=== PATIENT | male | born 1940 | race Caucasian/White ===

== ENCOUNTER 2023-08-18 04:23 | Emergency (ER) | payer MEDICARE, SELFPAY ==
[2023-08-18 04:24] VITALS: BP 158/95
--- NOTE | 2023-08-18 04:58 | ED.GENMED ---
History of Present Illness
<FEDE Alba - Last Filed: 08/18/23 05:17>
General
Chief Complaint: Dizziness
Source: patient
Exam Limitations: none
Time Seen by Provider: 08/18/23 04:25
Travel History
Have you had any contact with someone who has COVID-19?: No
Do you have any symptoms of coronavirus? Fever > 100 degrees, chills, cough, shortness of breath, sore throat, loss of taste or smell, muscle aches, or headache?: No
History of Present Illness
History of Present Illness:
82 y/o M with history of empysema presents for dizziness and SOB starting a few hours ago. Patient reports he woke up because he was unable to breath. He reports this episode lasted 40 minutes until the EMS came. Patient states when he sat up on the
side of his bed and had a sensation of the room spinning. He reports he was afraid to stand up because he was feeling weak and shaky. He is reporting his vision has been worsening for the past few months. He reports associated watery eyes with the
vision change. Patient does have productive cough but reports history of emphysema. He denies any past similar symptoms. He reports he has had anxiety for years but has never formally gotten help for his anxiety. He denies chest pain, palpitations,
dizziness, headache or LOC.
If applicable-neuro sx onset
Onset of symptoms known: Yes
<Randal Hamm DO - Last Filed: 08/18/23 06:41>
If applicable-neuro sx onset
Date of onset of symptoms: 08/18/23
Past History
<FEDE Alba - Last Filed: 08/18/23 05:17>
Past History
ED Past Medical History: COPD
Review of Systems
<FEDE Alba - Last Filed: 08/18/23 05:17>
Review of Systems
Allergies reviewed?: Yes
All Other Systems: ROS reviewed and negative except as documented in HPI and ROS
Constitutional: Reports no symptoms
EENT: Reports no symptoms
Respiratory: Reports cough and trouble breathing
Cardiac: Reports syncope
ABD/GI: Reports no symptoms
: Reports no symptoms
Musculoskeletal: Reports no symptoms
Skin: Reports no symptoms
Neurological: Reports no symptoms
Endocrine: Reports no symptoms
Hematologic/Lymphatic: Reports no symptoms
Psychiatric: Reports no symptoms
Phy Exam
<FEDE Alba - Last Filed: 08/18/23 05:17>
General Physical Exam
General Presentation: well appearing and no apparent distress
General age: appears stated age
General Skin: warm
General Habitus: normal
General Mental: alert
General Hydration: appears well hydrated
ENT Exam
ENT Exam: EOMI and neck supple
Eye Exam
Eye Exam: PERRL, EOMI and conjunctiva normal
Cardiovascular Exam
Cardiovascular Exam: regular rate/rhythm, no edema and no murmur
Pulmonary Exam
Pulmonary Exam: generalized wheezing
Cough: productive cough
Skin Exam
Skin Exam: normal color, warm/dry and no rash
Course
<FEDE Alba - Last Filed: 08/18/23 05:17>
Orders/Labs/Results
Orders:
Orders
08/18/23 04:41
Electrocardiogram (*1) Urgent
Reason for Study: Vertigo / Dizzy
Cardiology Consult: Unknown
08/18/23 04:42
EKG- Treatment ONCE
08/18/23 04:54
Complete Blood Count/With Diff Urgent
Comprehensive Metabolic Panel Urgent
Urine Culture Reflexed from UA [Urinalysis Reflex To Culture] Urgent
Date Specimen was Collected: 08/18/23
Time Specimen was Collected: 04:42
08/18/23 05:06
Orthostatic VS- Treatment ONCE
Abnormal Lab Results
08/18/23
04:54
RBC 4.62 L 10^6/uL
(4.70-6.10)
MCH 31.8 H pg
(27.0-31.0)
Abs Immat Gran (auto) 0.1 H 10^3/uL
(0-0.05)
Immature Gran % 0.8 H %
(0-0.5)
Carbon Dioxide 31 H mmol/L
(22-30)
Glucose 106 H mg/dl
(70-99)
08/18/23 04:54
08/18/23 04:54
Vital Signs
Initial and Last Documented VS:
Initial Vital Signs
Temp Pulse Resp BP Pulse Ox
98.7 F 84 20 158/95 95
08/18/23 04:24 08/18/23 04:24 08/18/23 04:24 08/18/23 04:24 08/18/23 04:24
Last Documented Vital Signs
Temp Pulse Resp BP Pulse Ox
98.7 F 84 20 158/95 96
08/18/23 04:24 08/18/23 04:24 08/18/23 04:24 08/18/23 04:24 08/18/23 05:01
<Randal Hamm, DO - Last Filed: 08/18/23 06:41>
Orders/Labs/Results
Orders:
Orders
08/18/23 04:41
Electrocardiogram (*1) Urgent
Reason for Study: Vertigo / Dizzy
Cardiology Consult: Unknown
08/18/23 04:42
EKG- Treatment ONCE
08/18/23 04:54
Complete Blood Count/With Diff Urgent
Comprehensive Metabolic Panel Urgent
Urine Culture Reflexed from UA [Urinalysis Reflex To Culture] Urgent
Date Specimen was Collected: 08/18/23
Time Specimen was Collected: 04:42
08/18/23 05:06
Orthostatic VS- Treatment ONCE
Abnormal Lab Results
08/18/23
04:54
RBC 4.62 L 10^6/uL
(4.70-6.10)
MCH 31.8 H pg
(27.0-31.0)
Abs Immat Gran (auto) 0.1 H 10^3/uL
(0-0.05)
Immature Gran % 0.8 H %
(0-0.5)
Carbon Dioxide 31 H mmol/L
(22-30)
Glucose 106 H mg/dl
(70-99)
08/18/23 04:54
08/18/23 04:54
Vital Signs
Initial and Last Documented VS:
Initial Vital Signs
Temp Pulse Resp BP Pulse Ox
98.7 F 84 20 158/95 95
08/18/23 04:24 08/18/23 04:24 08/18/23 04:24 08/18/23 04:24 08/18/23 04:24
Last Documented Vital Signs
Temp Pulse Resp BP Pulse Ox
98.7 F 84 20 158/95 96
08/18/23 04:24 08/18/23 04:24 08/18/23 04:24 08/18/23 04:24 08/18/23 05:01
<Randal Hamm DO - Last Filed: 08/18/23 06:41>
*Pulse Oximetry
Patient hypoxic: no
*Critical Care Note
Total Time (30-74mins, 75-104mins- exclusive of procedures): Not Applicable
ED Attending Note
<FEDE Alba - Last Filed: 08/18/23 05:17>
-
Portions of this chart may have been created with voice recognition software.� Occasional wrong word or��sound alike� substitutions may have occurred due to the inherent limitations of voice recognition software.
<Randal Hamm, DO - Last Filed: 08/18/23 06:41>
ED Attending Note
Patient seen and examined by attending physician: Yes
I performed the substantive portion of visit, reviewed & personally made and approve the management plan that is documented in note by myself or BERNIE.: Yes
ED Attending Note:
This is a pleasant 82-year-old male presents with dizziness and shortness of breath. He resides at [facility] and states that he awakened feeling shortness of breath. He states that it was maximal in onset and gradually resolved. He returned to
normal approximately 40 minutes after it began. Patient states that he was sitting on the bed when the room was spinning around him. During this event, he was afraid to ambulate or stand because she felt increased weakness. Patient has had a
similar event in the past. There is prior to him having a diagnosis of anxiety. Patient denies fever, chills, nausea or vomiting. Patient states that he has had anxiety for many years but states he has not gotten a resources for this. Patient
was seen in conjunction with the PA student. I have reviewed and agree with the history and treatment plan presented. On my independent physical exam, patient is awake, alert, and oriented x3 somnolent appearing. Heart is regular rate and rhythm.
Lungs are clear to auscultation bilaterally.CT abdomen and pelvis without intravenous contrast. Orthostatics were within normal limits. Patient has no complaints. Patient wishes to be discharged back to [facility]. Lab work were reviewed. I see
no reason the patient cannot be discharged. Patient states that he wishes to be discharged immediately.
Discharge Plan
Departure
Patient Disposition: [facility]/SNF
Date of Disposition: 08/18/23
Time of Disposition: 05:57
Discharge Problem:
Panic attack
Instructions: Anxiety, Adult (DC), BLOOD PRESSURE
Prescriptions:
No Action
therapeutic multivitamin Tablet
1 tab PO DAILY
mirtazapine 15 mg tablet
15 mg PO HS
vitamin B complex Capsule
1 cap PO DAILY
pantoprazole 40 mg Tablet,Delayed Release (Dr/Ec)
40 mg PO DAILY Qty: 30 0RF
Slow Fe 142 mg (45 mg iron) tablet extended release
142 mg PO BID Qty: 30 0RF
Rx Instructions:
with food
Acidophilus
1 tab PO DAILY
Colace
100 mg PO DAILY PRN (Reason: constipation)
Miralax
17 g PO DAILY
Referrals:
Derek Kendrick MD [Family Provider] -
Activity Restrictions/Additional Instructions:
It was a pleasure meeting you and taking part in your care. We hope for your continued healing and wellness.
Please read discharge instructions in their entirety. However, they are for general education and may not describe your exact diagnosis at discharge. Information on your ER visit and medical conditions were discussed with you along with appropriate
follow up information...
If indicated, please take your medications as instructed and indicated on discharge paperwork.
Please schedule a follow up appointment as directed. Call to schedule an appointment
Please return to the emergency department with ANY change in, persisting, or worsening of symptoms. If any of your symptoms do not improve, or persist, or become more severe within 6-12 hours, please return to the emergency department for further
care.
Please return to the emergency department if you develop a headache, neck pain/stiffness, fever greater than 100.4F, chest pain, shortness of breath, persistent nausea, vomiting, slurred speech, difficulty walking, numbness/tingling, weakness, signs
of infection or any other symptoms that are worrisome to you.
If you have any questions or concerns please do not hesitate to call the Hospital at or E-mail me directly at [email or web address]
Interventions
Interventions:
*Risk Screen - Suicide Last Done: 08/18/23 04:24
*Neglect/Abuse Screening Last Done: 08/18/23 05:01
ED- Fall Risk Assessment Last Done: 08/18/23 04:24
*ED COVID-19 Vaccine History Last Done: 08/18/23 04:24
ED-Psychological Assessment Last Done: 08/18/23 05:01
ED- Neurological Assessment Last Done: 08/18/23 05:01
ED- Cardiac Assessment Last Done: 08/18/23 05:01
[2023-08-18 05:01] VITALS: BMI 32.2
[2023-08-18 05:02] LABS: % Basophils 1.1 % (0-2); % Eosinophils 2.9 % (0-6); % Immature Granulocytes 0.8 % (0-0.5); % Lymphocytes 30.9 % (20.5-51.1); % Monocytes 9.1 % (1.7-9.3); % Neutrophils 55.2 % (42.2-75.2); Absolute Basophils 0.1 10^3/uL (0-0.2); Absolute Eosinophils 0.2 10^3/uL (0-0.7); Absolute Immature Granulocytes 0.1 10^3/uL (0-0.05); Absolute Monocytes 0.6 10^3/uL (0.1-0.6); Absolute Neutrophils 3.6 10^3/uL (1.4-6.5); Hematocrit 42.3 % (39.0-52.0); Hemoglobin 14.7 g/dL (13.0-18.0); Mean Corp Hgb Conc. 34.8 g/dL (33.0-37.0); Mean Corpuscular Hgb 31.8 pg (27.0-31.0); Mean Corpuscular Volume 91.6 fL (80.0-94.0); Mean Platelet Volume 8.6 fL (7.4-10.4); Nucleated Red Blood Cells % 0 % (-); Platelet Count 251 10^3/uL (130-400); Red Blood Cell Count 4.62 10^6/uL (4.70-6.10); Red Cell Dist. Width 13.2 % (11.5-14.5); White Blood Cell Count 6.5 10^3/uL (4.8-10.8)
[2023-08-18 05:29] LABS: Urine Albumin Negative (Neg - Trace); Urine Bilirubin Negative (Negative); Urine Character Clear (Clear); Urine Color Yellow; Urine Glucose Negative (Negative); Urine Ketone Negative (Negative); Urine Leukocyte Negative (Negative); Urine Nitrite Negative (Negative); Urine Occult Blood Negative (Negative); Urine Urobilinogen Negative (Neg - 1+)
[2023-08-18 05:30] LABS: ALT (SGPT) 29 U/L (0-50); AST (SGOT) 33 U/L (17-59); Alkaline Phosphatase 87 U/L (38-126); Blood Urea Nitrogen 18 mg/dl (9-20); Carbon Dioxide 31 mmol/L (22-30); Chloride 99 mmol/L (98-107); Estimated Creatinine Clearance 71 ml/min; Glucose 106 mg/dl (70-99); Potassium 4.2 mmol/L (3.5-5.1); Sodium 140 mmol/L (135-145); Total Bilirubin 0.7 mg/dl (0.2-1.3); Total Protein 6.5 g/dl (6.3-8.2); eGFR > 60.00
[2023-08-18 05:50] VITALS: BP 125/84; BP 139/82; BP 143/83; PULSE 77; PULSE 81; PULSE 85
== END 2023-08-18 06:50 ==
LOC: EMR 04:23
PROVIDERS: EMERGENCY PHYSICIAN Student in an Organized Health Care Education/Training Program; FAMILY PHYSICIAN Internal Medicine Geriatric Medicine
DX: F41.0 Panic disorder [episodic paroxysmal anxiety] (principal); J43.9 Emphysema, unspecified
CPT/HCPCS: 99284; 80053; 81003; 85025; 93005

== ENCOUNTER → 2023-11-16 11:15 | Outpatient (REF) | payer MEDICARE, SELFPAY ==
[2023-11-16 13:51] LABS: % Basophils 0.9 % (0-2); % Eosinophils 2.4 % (0-6); % Immature Granulocytes 0.6 % (0-0.5); % Lymphocytes 26.4 % (20.5-51.1); % Monocytes 10.4 % (1.7-9.3); % Neutrophils 59.3 % (42.2-75.2); Absolute Basophils 0.1 10^3/uL (0-0.2); Absolute Eosinophils 0.2 10^3/uL (0-0.7); Absolute Immature Granulocytes 0.1 10^3/uL (0-0.05); Absolute Lymphocytes 2.6 10^3/uL (1.2-3.4); Absolute Neutrophils 5.8 10^3/uL (1.4-6.5); Hematocrit 45.1 % (39.0-52.0); Mean Corp Hgb Conc. 33.3 g/dL (33.0-37.0); Mean Corpuscular Hgb 30.2 pg (27.0-31.0); Mean Corpuscular Volume 90.9 fL (80.0-94.0); Mean Platelet Volume 9.2 fL (7.4-10.4); Nucleated Red Blood Cells % 0 % (-); Platelet Count 264 10^3/uL (130-400); Red Blood Cell Count 4.96 10^6/uL (4.70-6.10); Red Cell Dist. Width 13.1 % (11.5-14.5); White Blood Cell Count 9.7 10^3/uL (4.8-10.8)
[2023-11-16 13:52] LABS: Urine Albumin Negative (Neg - Trace); Urine Bilirubin Negative (Negative); Urine Character Clear (Clear); Urine Color Yellow; Urine Glucose Negative (Negative); Urine Ketone Negative (Negative); Urine Leukocyte Negative (Negative); Urine Nitrite Negative (Negative); Urine Occult Blood Negative (Negative); Urine Specific Gravity 1.015 (<1.030); Urine Urobilinogen Negative (Neg - 1+)
[2023-11-16 14:06] LABS: ALT (SGPT) 27 U/L (0-50); AST (SGOT) 34 U/L (17-59); Albumin 4.6 g/dl (3.5-5.0); Alkaline Phosphatase 94 U/L (38-126); Blood Urea Nitrogen 21 mg/dl (9-20); Carbon Dioxide 29 mmol/L (22-30); Chloride 103 mmol/L (98-107); Glucose 91 mg/dl (70-99); HDL Cholesterol 99 mg/dl; LDL Cholesterol, Calculated 106 mg/dl; Potassium 4.3 mmol/L (3.5-5.1); Sodium 138 mmol/L (135-145); Total Bilirubin 0.6 mg/dl (0.2-1.3); Total Cholesterol 221 mg/dl (50-199); Total Protein 7.3 g/dl (6.3-8.2); Triglyceride 82 mg/dl (10-149); Very Low Density Lipoprotein 16 mg/dl (0-30); eGFR > 60.00
[2023-11-16 14:23] LABS: Vitamin D, 25-OH*** 49.1 ng/mL (30-80)
== END ==
LOC: OLABPV 11:15
PROVIDERS: ATTENDING PHYSICIAN Internal Medicine Geriatric Medicine
DX: E78.2 Mixed hyperlipidemia (principal); R53.83 Other fatigue; G47.00 Insomnia, unspecified; G25.0 Essential tremor; G60.9 Hereditary and idiopathic neuropathy, unspecified; M76.30 Iliotibial band syndrome, unspecified leg; N50.3 Cyst of epididymis; N40.1 Benign prostatic hyperplasia with lower urinary tract symptoms; F32.9 Major depressive disorder, single episode, unspecified; K57.91 Diverticulosis of intestine, part unspecified, without perforation or abscess with bleeding; Z13.89 Encounter for screening for other disorder; D50.0 Iron deficiency anemia secondary to blood loss (chronic); R97.20 Elevated prostate specific antigen [PSA]; R63.4 Abnormal weight loss; R53.1 Weakness; R26.89 Other abnormalities of gait and mobility; E55.9 Vitamin D deficiency, unspecified
CPT/HCPCS: 36415; 80053; 80061; 81003; 82306; 84153; 85025

== ENCOUNTER 2024-03-10 12:43 | Outpatient (RCR) | payer MEDICARE, SELFPAY | END 2024-03-10 23:59 | disposition home or self-care (01) | LOC: RPT 12:43 | PROVIDERS: ATTENDING PHYSICIAN Internal Medicine Geriatric Medicine | DX: H81.12 Benign paroxysmal vertigo, left ear (principal); Z73.6 Limitation of activities due to disability | CPT/HCPCS: 97112; 97162; 97530 ==

== ENCOUNTER 2024-03-28 13:52 | Outpatient (RCR) | payer MEDICARE, SELFPAY | END 2024-03-28 23:59 | disposition home or self-care (01) | LOC: RPT 13:52 | PROVIDERS: ATTENDING PHYSICIAN Internal Medicine Geriatric Medicine | DX: H81.12 Benign paroxysmal vertigo, left ear (principal); Z73.6 Limitation of activities due to disability | CPT/HCPCS: 97112 ==

== ENCOUNTER 2024-09-03 13:50 | Observation (INO) | payer MEDICARE, SELFPAY ==
[2024-09-03 13:00] VITALS: BP 108/91
[2024-09-03 13:11] LABS: % Basophils 0.4 % (0-2); % Eosinophils 0.9 % (0-6); % Immature Granulocytes 0.9 % (0-0.5); % Lymphocytes 20.9 % (20.5-51.1); % Monocytes 8.5 % (1.7-9.3); % Neutrophils 68.4 % (42.2-75.2); Absolute Eosinophils 0.1 10^3/uL (0-0.7); Absolute Immature Granulocytes 0.1 10^3/uL (0-0.05); Absolute Lymphocytes 1.7 10^3/uL (1.2-3.4); Absolute Monocytes 0.7 10^3/uL (0.1-0.6); Absolute Neutrophils 5.6 10^3/uL (1.4-6.5); Hematocrit 40.2 % (39.0-52.0); Hemoglobin 13.4 g/dL (13.0-18.0); Mean Corp Hgb Conc. 33.3 g/dL (33.0-37.0); Mean Corpuscular Hgb 31.1 pg (27.0-31.0); Mean Corpuscular Volume 93.3 fL (80.0-94.0); Mean Platelet Volume 8.7 fL (7.4-10.4); Nucleated Red Blood Cells % 0 % (-); Platelet Count 200 10^3/uL (130-400); Red Blood Cell Count 4.31 10^6/uL (4.70-6.10); White Blood Cell Count 8.2 10^3/uL (4.8-10.8)
--- NOTE | 2024-09-03 13:13 | ED.GENMED ---
History of Present Illness
General
Chief Complaint: Rectal Bleeding
Source: patient
Exam Limitations: none
Time Seen by Provider: 09/03/24 12:57
History of Present Illness
History of Present Illness:
Patient with 3 episodes of bright red rectal bleeding today. Feels fine. First episode was with stool. No abdominal pain lightheadedness weakness or other complaints
Past History
Past History
ED Past Medical History: COPD
ED Past Surgical History: Appendectomy, Bowel resection and Cholecystectomy
Review of Systems
Review of Systems
All Other Systems: Not applicable
Constitutional: Denies fever or chills
ABD/GI: Denies abdominal pain or black stools
Phy Exam
Physical Exam
Physical Exam:
GENERAL: Alert and oriented in no apparent distress
EYE: Orbits normal.
NECK: Supple, no significant adenopathy.
ENT: Pharynx without erythema
CARDIAC: Regular rate and rhythm without any obvious murmurs.
LUNGS: Clear breath sounds,normal
ABDOMEN: Soft, without focal tenderness or distention
NEUROLOGICAL: Alert and oriented , grossly non-focal
SKIN: Warm and dry, no rash or lesion, no discoloration, skin intact.
MUSCULOSKELETAL: No edema,no deformity.Good color
PSYCH: Normal and appropriate interaction.. Rectal exam with a small external hemorrhoid nonbleeding. On fingertip exam large smooth prostate. Moderate bright red blood on the fingertip.
Course
Orders/Labs/Results
Orders:
Orders
09/03/24 12:48
EKG [Electrocardiogram (*1)] Urgent
Reason for Study: Chest Pain
09/03/24 12:49
EKG- Treatment ONCE
09/03/24 12:55
Type And Crossmatch [Type+Screen] Urgent
Complete Blood Count/With Diff Urgent
Comprehensive Metabolic Panel Urgent
09/03/24 13:36
Admit/Transfer Patient As Directed
Co-Sign Provider:
Level of Care: Observation services
Assign to:: Medical/Surgical
Physician / Group: marian
Diagnosis: diverticular bleeding
Code Status As Directed
Resuscitation Status: Do not resuscitate
Reached after discussion with pt or family/Healthcare POA: Yes
DNR Bracelet Application ONCE
PRN Pain Medication Management As Directed
May give lesser potent ordered pain med per pt: Yes
preference::
Protocol:: Medication orders for pain may be administered in a
manner that supports deferring to patient preference
when the pt is:
- Requesting an ordered lesser potent pain medication.
Least to most potent pain medications are defined
as: acetaminophen < NSAID < tramadol < opioids
(morphine, oxycodone, hydromorphone).
- Requesting a lesser dose of the same medication IF
ORDERED.
- Requesting a less intrusive route of administration
if both routes are prescribed by the provider (PO <
IV).
Abnormal Lab Results
09/03/24
12:55
RBC 4.31 L 10^6/uL
(4.70-6.10)
MCH 31.1 H pg
(27.0-31.0)
Abs Immat Gran (auto) 0.1 H 10^3/uL
(0-0.05)
Absolute Monos (auto) 0.7 H 10^3/uL
(0.1-0.6)
Immature Gran % 0.9 H %
(0-0.5)
BUN 23 H mg/dl
(9-20)
Total Protein 6.0 L g/dl
(6.3-8.2)
09/03/24 12:55
09/03/24 12:55
Vital Signs
Initial and Last Documented VS:
Initial Vital Signs
BP
108/91
09/03/24 13:00
Last Documented Vital Signs
Temp BP Pulse Ox
97.9 F 108/91 94
09/03/24 13:07 09/03/24 13:00 09/03/24 13:01
MDM/Problems Addressed
Differential Diagnosis Includes:
Stable lower GI bleed. However previous GI bleed had a significant drop in hemoglobin requiring transfusion. For this reason I feel he should be admitted for observation overnight
*Critical Care Note
Total Time (30-74mins, 75-104mins- exclusive of procedures): Not Applicable
Data Reviewed
Review of Other/Old Records Reveals: Labs, Records, Testing and Discharge Summary
ED Attending Note
-
Portions of this chart may have been created with voice recognition software.� Occasional wrong word or��sound alike� substitutions may have occurred due to the inherent limitations of voice recognition software.
Discharge Plan
Departure
Patient Disposition: Admit
Date of Disposition: 09/03/24
Time of Disposition: 13:19
Presentation/result/management discussed w/ accepting MD/DO: Hospitalist
Discharge Problem:
Acute GI bleeding
[2024-09-03 13:21] LABS: ALT (SGPT) 26 U/L (0-50); AST (SGOT) 27 U/L (17-59); Albumin 3.6 g/dl (3.5-5.0); Alkaline Phosphatase 85 U/L (38-126); Blood Urea Nitrogen 23 mg/dl (9-20); Calcium 9.2 mg/dl (8.4-10.2); Carbon Dioxide 30 mmol/L (22-30); Chloride 104 mmol/L (98-107); Glucose 97 mg/dl (70-99); Potassium 4.5 mmol/L (3.5-5.1); Sodium 139 mmol/L (135-145); Total Bilirubin 0.6 mg/dl (0.2-1.3); eGFR > 60.00
[2024-09-03 13:26] VITALS: BP 110/74
--- NOTE | 2024-09-03 13:38 | HPS.HSE ---
Family Physician
-
Family Physician: Derek Kendrick
Chief Complaint
-
rectal bleeding
History of Present Illness
83-year-old male past medical history of diverticulitis status post colon resection 14 years ago, diverticular bleeding, anxiety/depression presenting with 3 episodes of bright red rectal bleeding today. First episode was with stool. He had 2
further episodes that were mostly blood. The color was maroon-colored. Denies abdominal pain. Denies rectal pain. Denies nausea or vomiting. Denies dizziness or weakness. Denies chest pain or shortness of breath.
Medical History
Past Medical History
Past Medical History: Reports Other (diverticulitis status post colon resection 14 years ago, diverticular bleeding, anxiety/depression)
Past Surgical History: Reports Other (colon resection )
Social History
Tobacco: Non-smoker
Alcohol: None
Drug: None
Family History
Family History: Not pertinent
Allergies / Home Medications
Allergies reflects when Allergies were last updated in [employer].
Home Medications with original date entered in [employer]
Allergy/Medication List:
Allergies
Allergy/AdvReac Type Severity Reaction Status Date / Time
tamsulosin [From Flomax] Allergy Unknown Unknown Verified 09/03/24 13:06
zolpidem Allergy Unknown Verified 10/01/22 17:40
Home Medications
mirtazapine 15 mg tablet 15 mg PO HS Mental Health/Anxiety 10/01/22
therapeutic multivitamin 1 tab PO QPM Supplement 10/01/22
vitamin B complex 1 cap PO DAILY Supplement 10/01/22
Lactobac no.2-Bifidobac no.1-S. thermo 112.5 billion cell capsule (Visbiome) 1 cap PO DAILY 08/18/23
docusate sodium 100 mg capsule (Colace) 100 mg PO DAILYPRN PRN constipation 08/18/23
buspirone 5 mg tablet 5 mg PO DAILY 09/03/24
vitamins A,C,K-btdj-fwslrx 2,148 mcg-113 mg-45 mg-17.4 mg tablet (PreserVision AREDS) 1 tab PO DAILY 09/03/24
Review of Systems
-
History Source: Patient
A 12 point ROS was completed and negative except as noted: Yes
Constitutional: Reports No Symptoms
EENT: Reports No Symptoms
Respiratory: Reports No Symptoms
Cardiac: Reports No Symptoms
Abdomen/GI: Reports See HPI
: Reports No Symptoms
Musculoskeletal: Reports No Symptoms
Skin: Reports No Symptoms
Neurological: Reports No Symptoms
Endocrine: Reports No Symptoms
Hematologic/Lymphatic: Reports No Symptoms
Psych: Reports No Symptoms
Physical Exam
Vital Signs
Vital Signs
Temp BP Pulse Ox
97.9 F 108/91 94
09/03/24 13:07 09/03/24 13:00 09/03/24 13:01
Physical Exam
General: Well Developed, Well Nourished and No Apparent Distress
HEENT: NormoCephalic, Moist mucous membranes and Atraumatic
Respiratory: Clear
Cardiac: S1/S2 and Regular Rhythm; No Murmur or Rub
GI: Soft, Non Tender, Non Distended and Normal Bowel Sounds; No Organomegaly
Rectal: Deferred by Provider
Musculoskeletal: No Clubbing, No Cyanosis and No Edema
Skin: No Rash
Neuro: Nonfocal/grossly intact
Laboratory Results
-
09/03/24 12:55
09/03/24 12:55
Laboratory Results
Total Bilirubin 0.6 mg/dl (0.2-1.3) 09/03/24 12:55
AST 27 U/L (17-59) 09/03/24 12:55
ALT 26 U/L (0-50) 09/03/24 12:55
Alkaline Phosphatase 85 U/L (38-126) 02/23/25 12:55
Data Reviewed
-
Lab Data: Labs Reviewed by me
Old Records: Reviewed
Impression/Plan
-
IMPRESSION:
PLAN:
# Rectal bleeding likely diverticular
# History of rectal bleeding secondary to diverticulosis
-Rectal exam showed small external hemorrhoid nonbleeding
-Hemoglobin 13.4
-Observation overnight, GI consult if further bleeding or hemoglobin drop
-Clear liquid diet
-Hold docusate
History of diverticulitis status post colon resection 14 years ago
Anxiety/depression
-Continue buspirone, mirtazapine
History of impaired fasting glucose
DNR/DNI
DVT prophylaxis�SCDs
Clear liquid diet
[2024-09-03 14:00] VITALS: BP 113/73
[2024-09-03 16:00] VITALS: BP 110/77
[2024-09-03] MEDS: THERAGRAN 1 TABLET PO (17:18)
[2024-09-03] MEDS: REMERON 15 MG PO (22:49)
[2024-09-03 23:43] VITALS: BP 116/74
[2024-09-04 07:25] VITALS: BP 116/77
--- NOTE | 2024-09-04 07:44 | PTCARENOTE ---
Patient with 2 episodes of blood red blood with BM this AM. notified.
[2024-09-04 08:18] LABS: % Basophils 0.6 % (0-2); % Eosinophils 2.4 % (0-6); % Immature Granulocytes 0.6 % (0-0.5); % Lymphocytes 28.6 % (20.5-51.1); % Monocytes 9.3 % (1.7-9.3); % Neutrophils 58.5 % (42.2-75.2); Absolute Eosinophils 0.2 10^3/uL (0-0.7); Absolute Lymphocytes 1.8 10^3/uL (1.2-3.4); Absolute Monocytes 0.6 10^3/uL (0.1-0.6); Absolute Neutrophils 3.7 10^3/uL (1.4-6.5); Hematocrit 38.1 % (39.0-52.0); Hemoglobin 12.5 g/dL (13.0-18.0); Mean Corp Hgb Conc. 32.8 g/dL (33.0-37.0); Mean Corpuscular Hgb 30.6 pg (27.0-31.0); Mean Corpuscular Volume 93.2 fL (80.0-94.0); Mean Platelet Volume 9.1 fL (7.4-10.4); Nucleated Red Blood Cells % 0 % (-); Platelet Count 193 10^3/uL (130-400); Red Blood Cell Count 4.09 10^6/uL (4.70-6.10); White Blood Cell Count 6.3 10^3/uL (4.8-10.8)
[2024-09-04] MEDS: B COMPLEX w/VITAMIN C 1 CAPLET PO (08:44)
[2024-09-04] MEDS: VISBIOME 1 CAP PO (08:44)
[2024-09-04] MEDS: BUSPAR 5 MG PO (08:44)
[2024-09-04] MEDS: OCUVITE SOFTGEL 1 CAP PO (08:44)
[2024-09-04 08:45] LABS: ALT (SGPT) 24 U/L (0-50); AST (SGOT) 26 U/L (17-59); Albumin 3.2 g/dl (3.5-5.0); Alkaline Phosphatase 71 U/L (38-126); Blood Urea Nitrogen 17 mg/dl (9-20); Carbon Dioxide 29 mmol/L (22-30); Chloride 105 mmol/L (98-107); Glucose 100 mg/dl (70-99); Potassium 3.9 mmol/L (3.5-5.1); Sodium 137 mmol/L (135-145); Total Bilirubin 0.7 mg/dl (0.2-1.3); Total Protein 5.4 g/dl (6.3-8.2); eGFR > 60.00
--- NOTE | 2024-09-04 09:16 | CON.GI ---
Addendum entered and electronically signed by Crys Redman MD 09/04/24 13:03:
I saw and examined the patient.
The STRUCTURES TECHNICIAN's note was reviewed and I agree with the note.
Comment: Mr. Schwartz is a very pleasant 83-year-old male with past medical history as listed below including prior history of diverticulitis status post colon resection and also history of lower GI bleed presumed to be diverticular in 2022 and he
did have a colonoscopy during that admission and was noted to have colon polyps which were tubular adenomas and inflammatory polyp and diverticulosis and hemorrhoids were noted. Yesterday he had painless rectal bleeding a few episodes and presented
to the emergency room admission hemoglobin was 13.4 and dropped to 12.5 since admission. He has not had any further bleeding today. He denies any abdominal pain no nausea or vomiting no fevers or chills. He does suffer from chronic constipation
he has tried a couple of keee-dpz-szvjzve laxatives, says fiber bound him up he says MiraLAX does help but makes him go too much sometimes and so he takes it every 2 to 3 days and also tried Linzess a few years ago. He does use tap water enemas
every 2 to 3 days.
Assessment and plan lower GI bleed most likely related to hemorrhoids versus diverticulosis less likely ischemic colitis he had painless bleeding. He did have a similar episode in 2022 and colonoscopy at that time revealed diverticulosis,
hemorrhoids and polyps which were removed. He denies any aspirin or NSAID use prior to admission. Continue to monitor hemoglobin and if he does have further brisk bleeding would recommend CTA. I also recommended for him to take MiraLAX every day
or every other day for chronic constipation, he only takes it sometimes and when he does use it works for him but he says it gives him diarrhea so I told him to take half the dose every other day or daily, he says Linzess did not help him in the
past but is unsure of the dose he tried. Could try other prescription laxatives as outpatient. He also uses tapwater enemas about 2-3 times a week. he is going to follow-up also to discuss his chronic dysphagia symptoms as outpatient.
Original Note:
Consultation
-
Date/Time Consultation Requested: 09/04/24909
Date/Time Consultation Performed: 09/04/24914
Requesting Provider: Liu Kingsley MD
Performing Provider: KENISHA Gage, Crys Redman MD
Reason for Consultation: rectal bleeding
Medical History
Chief Complaint / HPI
Chief Complaint: rectal bleeding
History of Present Illness:
Pt is an 83yo with hx diverticulitis with prior colon resection, diverticular bleeding 2022, TA colon polyps, constipation, vertigo, basal cell CA,anxiety/depression, prior alverto, appe with onset of rectal bleeding. Bleeding started 09/03 and
persists til today with larger volume of red blood in toilet and darker stools. On admission hbg 13.4 with drop to 12.5 after admission. Pt admits to chronic constipation with use of stool softener, probiotic mother earth supplement and enemas to
assist with constipation. He has tried Miralax, milk of mag and Linzess many years ago. He also has chronic dysphagia with solids with no prior work up. He otherwise denies any issues with odynophagia, GERD, nausea, vomiting, abdominal pain,
or diarrhea. Per patient Last colonoscopy was 09/2022-Dr. Murtaza Lima-hemorrhoids, normal ileum, blood in entire colon, diverticulosis, 5 mm polyp AC, 9 mm polyp Descending colon, 9 mm polyp Descending colon, hemorrhoids bx TA and inflammatory polyp.
Past Medical History
Past Medical History: Cancer (basal cell skin CA), Psychiatric (anxiety/depression) and Other ( diverticulitis, prior diverticular bleeding, vertigo, insomnia, spinal stenosis, TA colon polyps, BPH, fatty liver per prior imaging )
Past Surgical History: Appendectomy, Bowel Resection (?Sigmoid resection for diverticular disease ), Cholecystectomy, Tonsilectomy and Other (cataracts)
Social History
Tobacco: Former Smoker
Alcohol: None
Drug: None
Living: Alone
Employment: Retired
Family History
Family History: Other (no family hx colon Ca or polyps)
Allergies / Home Medications
Allergy/AdvReac Type Severity Reaction Status Date / Time
tamsulosin [From Flomax] Allergy Unknown Unknown Verified 09/03/24 13:06
zolpidem Allergy Unknown Verified 10/01/22 17:40
�Medication �Instructions �Recorded
mirtazapine 15 mg tablet 15 mg PO HS Mental Health/Anxiety 10/01/22
therapeutic multivitamin 1 tab PO QPM Supplement 10/01/22
vitamin B complex 1 cap PO DAILY Supplement 10/01/22
Lactobac no.2-Bifidobac no.1-S. 1 cap PO DAILY 08/18/23
thermo 112.5 billion cell capsule
(Visbiome)
docusate sodium 100 mg capsule 100 mg PO DAILYPRN PRN constipation 08/18/23
(Colace)
buspirone 5 mg tablet 5 mg PO DAILY 09/03/24
vitamins A,C,D-kjic-mobgon 2,148 1 tab PO DAILY 09/03/24
mcg-113 mg-45 mg-17.4 mg tablet
(PreserVision AREDS)
Review of Systems
-
History Source: Patient
Constitutional: Reports Weight Loss ( 30 lb loss over 4 years since moving to [place] )
EENT: Reports No Symptoms
Respiratory: Reports No Symptoms
Cardiac: Reports No Symptoms
Abdomen/GI: Reports Constipated, Bloody Stools and Other (chronic dysphagia )
: Reports No Symptoms
Musculoskeletal: Reports No Symptoms
Skin: Reports No Symptoms
Neurological: Reports Other (balance issues )
Endocrine: Reports No Symptoms
Hematologic/Lymphatic: Reports Bleeding
Vital Signs
Temp Pulse Resp BP Pulse Ox
98.1 F 84 18 116/77 98
09/04/24 07:25 09/04/24 07:25 09/04/24 07:25 09/04/24 07:25 09/04/24 07:25
Physical Exam
Exam
General: Well Developed, Well Nourished and No Apparent Distress
HEENT: Normocephalic and Anicteric
Respiratory: Clear
Cardiac: Regular Rhythm
GI: Soft and Non Distended
Musculoskeletal: No Clubbing and No Cyanosis
Skin: Warm and Dry
Neuro: Awake, Alert and AO x 3
Psych: Calm
Results
WBC 6.3 10^3/uL (4.8-10.8) 09/04/24 07:02
Hgb 12.5 g/dL (13.0-18.0) L 09/04/24 07:02
Hct 38.1 % (39.0-52.0) L 09/04/24 07:02
MCV 93.2 fL (80.0-94.0) 09/04/24 07:02
Plt Count 193 10^3/uL (130-400) 09/04/24 07:02
Absolute Neuts (auto) 3.7 10^3/uL (1.4-6.5) 09/04/24 07:02
Sodium 137 mmol/L (135-145) 09/04/24 07:02
Potassium 3.9 mmol/L (3.5-5.1) 09/04/24 07:02
Chloride 105 mmol/L (98-107) 09/04/24 07:02
Carbon Dioxide 29 mmol/L (22-30) 09/04/24 07:02
BUN 17 mg/dl (9-20) 09/04/24 07:02
Creatinine 0.9 mg/dL (0.7-1.3) 09/04/24 07:02
Calcium 9.0 mg/dl (8.4-10.2) 09/04/24 07:02
Total Bilirubin 0.7 mg/dl (0.2-1.3) 09/04/24 07:02
AST 26 U/L (17-59) 09/04/24 07:02
ALT 24 U/L (0-50) 09/04/24 07:02
Alkaline Phosphatase 71 U/L (38-126) 09/04/24 07:02
Diagnostic Image Results:
Prior GI Procedures:
EGD: none
Colonoscopy: 09/2022-Dr. Murtaza Lima-hemorrhoids, normal ileum, blood in entire colon, diverticulosis, 5 mm polyp AC, 9 mm polyp Descending colon, 9 mm polyp Descending colon, hemorrhoids bx TA and inflammatory polyp.
Assessment / Plan
-
Pt is an 83yo with hx diverticulitis with prior colon resection, diverticular bleeding 2022, TA colon polyps, constipation, vertigo, basal cell CA,anxiety/depression, prior alverto, appe with onset of rectal bleeding. Bleeding started 09/03 with
larger volume of red blood in toilet and darker stools. On admission hbg 13.4 with drop to 12.5 after admission. Pt admits to chronic constipation with use of stool softener, probiotic mother earth supplement and enemas to assist with
constipation. He has tried Miralax, milk of mag and Linzess many years ago. He also has chronic dysphagia with solids with no prior work up. He otherwise denies any issues with odynophagia, GERD, nausea, vomiting, abdominal pain, or
diarrhea. Per patient Last colonoscopy was 09/2022-Dr. Murtaza Lima-hemorrhoids, normal ileum, blood in entire colon, diverticulosis, 5 mm polyp AC, 9 mm polyp Descending colon, 9 mm polyp Descending colon, hemorrhoids bx TA and inflammatory polyp.
-rectal bleeding
-hx prior diverticular bleeding
- diverticulitis with prior colon resection
-chronic constipation
-chronic dysphagia
-hx TA polyps
other med problems:
-vertigo
- insomnia
- spinal stenosis
-BPH
-Basal cell CA
- fatty liver per prior imaging
PLAN:etiology of bleeding related to diverticular bleeding vs hemorrhoids vs other
if increased bleeding consider CTA
if persistent bleeding consider prep and colonoscopy
trend hbg and stool record
reviewed with nursing staff
OP followup for dysphagia and chronic constipation
consider adding Linzess on discharge
-
-
Thank you for consultation and allowing me to participate in the patient's care. Please call the orthodontist GI physician during the after hours with any questions or concerns.
--- NOTE | 2024-09-04 14:02 | W.PN.HOSP.TC ---
Today's Communication/Plan
-
monitor for bleeding
Assessment / Plan
Assessment / Plan
Physical Exam
General: Well Developed, Well Nourished and No Apparent Distress
HEENT: NormoCephalic, Moist mucous membranes and Atraumatic
Respiratory: Clear
Cardiac: S1/S2 and Regular Rhythm; No Murmur or Rub
GI: Soft, Non Tender, Non Distended and Normal Bowel Sounds; No Organomegaly
Rectal: Deferred by Provider
Musculoskeletal: No Clubbing, No Cyanosis and No Edema
Skin: No Rash
Neuro: Nonfocal/grossly intact
# Rectal bleeding likely diverticular
# History of rectal bleeding secondary to diverticulosis
-Rectal exam showed small external hemorrhoid nonbleeding
-Hemoglobin 13.4
-GI consulted
-Clear liquid diet
-Hold docusate
-CT Angio if brisk bleeding
-Miralax q every other day
History of diverticulitis status post colon resection 14 years ago
Anxiety/depression
-Continue buspirone, mirtazapine
History of impaired fasting glucose
DNR/DNI
DVT prophylaxis�SCDs
Clear liquid diet
Anticipated Discharge: Within 24 hours
Subjective/Interval History
-
Date of Service: September 04, 2024
Recurrent bouts of bright red blood per rectum
Objective Data
-
Labs:
Laboratory Results
09/04/24 09/04/24
07:02 16:00
WBC 6.3
Hgb 12.5 L Pending
Hct 38.1 L Pending
Plt Count 193
Sodium 137
Potassium 3.9
Chloride 105
Carbon Dioxide 29
BUN 17
Creatinine 0.9
Glucose 100 H
Calcium 9.0
Total Bilirubin 0.7
AST 26
ALT 24
Alkaline Phosphatase 71
Vital Signs:
Vital Signs
Temp Pulse Resp BP Pulse Ox
98.1 F 84 18 116/77 98
09/04/24 07:25 09/04/24 07:25 09/04/24 07:25 09/04/24 07:25 09/04/24 07:25
I&O
09/03/24 09/04/24 09/05/24
06:59 06:59 06:59
Intake Total 540 / 540
Output Total 1175 / 1175
Balance -635 / -635
Review of Systems
-
History Source: Patient
All other systems: Not reviewed unless documented
Physical Exam
-
General: Well Developed, Well Nourished and No Apparent Distress
HEENT: Normocephalic and Atraumatic
Respiratory: Clear to Auscultation; Negative Wheezes or Rhonchi
Cardiac: Regular Rhythm and S1/S2; Negative Murmur
GI: Soft, Nontender, Nondistended and Normal Bowel Sounds
Musculoskeletal: No Clubbing, No Cyanosis and No Edema
Neuro: Awake and Alert
Data Reviewed
-
Labs: Labs Reviewed by me
[2024-09-04 15:17] VITALS: BP 109/64
[2024-09-04 16:25] LABS: Hematocrit 42.4 % (39.0-52.0); Hemoglobin 14.1 g/dL (13.0-18.0)
--- NOTE | 2024-09-04 17:02 | CM ---
brokerage manager reviewed patient's chart and patient was admitted under OBS, Observation letter provided to patient. patient resides at [facility], patient is independent with adl's and uses a cane with ambulation, patient to return to
[facility] apartment when stable.
PCP: Dr Kendrick
Pharmacy: [facility] on [facility]
Plan; Back to independent living at [facility].
[2024-09-04] MEDS: THERAGRAN 1 TABLET PO (17:19)
--- NOTE | 2024-09-04 18:56 | PTCARENOTE ---
Patient with formed BM this evening. Bright red blood noted to toilet bowl. Less blood noted than with episodes from earlier in day. MD updated. No new orders at this time.
[2024-09-04] MEDS: REMERON 15 MG PO (21:58)
[2024-09-04 23:31] VITALS: BP 100/62
[2024-09-05 06:49] LABS: Hematocrit 39.2 % (39.0-52.0); Hemoglobin 13.1 g/dL (13.0-18.0); Mean Corp Hgb Conc. 33.4 g/dL (33.0-37.0); Mean Corpuscular Hgb 31.6 pg (27.0-31.0); Mean Corpuscular Volume 94.7 fL (80.0-94.0); Platelet Count 233 10^3/uL (130-400); Red Blood Cell Count 4.14 10^6/uL (4.70-6.10); Red Cell Dist. Width 14.2 % (11.5-14.5); White Blood Cell Count 9.4 10^3/uL (4.8-10.8)
[2024-09-05 07:24] LABS: ALT (SGPT) 28 U/L (0-50); AST (SGOT) 31 U/L (17-59); Albumin 4.3 g/dl (3.5-5.0); Alkaline Phosphatase 79 U/L (38-126); Blood Urea Nitrogen 19 mg/dl (9-20); Calcium 9.4 mg/dl (8.4-10.2); Carbon Dioxide 26 mmol/L (22-30); Chloride 102 mmol/L (98-107); Glucose 90 mg/dl (70-99); Potassium 4.1 mmol/L (3.5-5.1); Sodium 139 mmol/L (135-145); Total Bilirubin 1.2 mg/dl (0.2-1.3); Total Protein 6.5 g/dl (6.3-8.2); eGFR > 60.00
[2024-09-05 07:26] VITALS: BP 110/71
[2024-09-05] MEDS: VISBIOME 1 CAP PO (09:21)
[2024-09-05] MEDS: OCUVITE SOFTGEL 1 CAP PO (09:21)
[2024-09-05] MEDS: B COMPLEX w/VITAMIN C 1 CAPLET PO (09:21)
[2024-09-05] MEDS: BUSPAR 5 MG PO (09:21)
--- NOTE | 2024-09-05 09:29 | W.PN.GI.CBS2 ---
Today's Communication / Plan
-
LRD and DC later if no further bleeding
Assessment / Plan
-
Pt is an 83yo with hx diverticulitis with prior colon resection, diverticular bleeding 2022, TA colon polyps, constipation, vertigo, basal cell CA,anxiety/depression, prior alverto, appe with onset of rectal bleeding. Bleeding started 09/03 with
larger volume of red blood in toilet and darker stools. On admission hbg 13.4 with drop to 12.5 after admission. Pt admits to chronic constipation with use of stool softener, probiotic mother earth supplement and enemas to assist with
constipation. He has tried Miralax, milk of mag and Linzess many years ago. He also has chronic dysphagia with solids with no prior work up. He otherwise denies any issues with odynophagia, GERD, nausea, vomiting, abdominal pain, or
diarrhea. Per patient Last colonoscopy was 09/2022-Dr. Murtaza Lima-hemorrhoids, normal ileum, blood in entire colon, diverticulosis, 5 mm polyp AC, 9 mm polyp Descending colon, 9 mm polyp Descending colon, hemorrhoids bx TA and inflammatory polyp.
-rectal bleeding
-hx prior diverticular bleeding
- diverticulitis with prior colon resection
-chronic constipation
-chronic dysphagia
-hx TA polyps
other med problems:
-vertigo
- insomnia
- spinal stenosis
-BPH
-Basal cell CA
- fatty liver per prior imaging
PLAN:etiology of bleeding related to diverticular bleeding vs hemorrhoids vs other
He did have 3 episodes with blood in the stool yesterday morning smaller episode later in the evening but hemoglobin remained stable
No further bleeding since last night anxious to eat and go home
Okay to start low residue diet and if no further bleeding okay for DC later today
OP followup for dysphagia and chronic constipation
He says fiber does not work for his chronic constipation I encouraged him to use MiraLAX which does help him every day or every other day maybe half the dose since he felt that the full dose was too much for him and he also uses tapwater enemas 2-3
times a week. Can consider prescription laxatives if not improved as outpatient
Subjective
Subjective
Date of Service: September 05, 2024
He had a small bowel movement yesterday afternoon and in the evening and as per nursing there was a small amount of blood but patient denies.
Objective
Data Reviewed
Laboratory Data:
Laboratory Results
09/05/24 05:02
09/05/24 05:02
Laboratory Results
Total Bilirubin 1.2 mg/dl (0.2-1.3) 09/05/24 05:02
AST 31 U/L (17-59) 09/05/24 05:02
ALT 28 U/L (0-50) 09/05/24 05:02
Alkaline Phosphatase 79 U/L (38-126) 09/05/24 05:02
Vital Signs and I&O:
Vital Signs
Temp Pulse Resp BP Pulse Ox
98 F 82 18 110/71 97
09/05/24 07:26 09/05/24 07:26 09/05/24 07:26 09/05/24 07:26 09/05/24 07:26
I&O
09/04/24 09/05/24 09/06/24
06:59 06:59 06:59
Intake Total 540 / 540 1200 / 1200
Output Total 1175 / 1175
Balance -635 / -635 1200 / 1200
Physical Exam
Physical Exam
Cardiology: Normal Sinus Rhythm
Pulmonary: Clear
GI: Soft, Non Distended, Non Tender and Normal Bowel Sounds
--- NOTE | 2024-09-05 13:01 | CM ---
Chart reviewed and patient resides at [facility] independent living, patient would benefit from PT/OT to assist with discharge planning needs.
Plan; return to [facility].
--- NOTE | 2024-09-05 14:39 | W.PN.HOSP.TC ---
Addendum entered and electronically signed by Liu Rodríguez MD 09/05/24 17:09:
[id number]
Original Note:
Today's Communication/Plan
-
miralax daily or prn/ can trial half dose
f/u pcp and gi outpt
f/u cbc outpt
Assessment / Plan
Assessment / Plan
Physical Exam
General: Well Developed, Well Nourished and No Apparent Distress
HEENT: NormoCephalic, Moist mucous membranes and Atraumatic
Respiratory: Clear
Cardiac: S1/S2 and Regular Rhythm; No Murmur or Rub
GI: Soft, Non Tender, Non Distended and Normal Bowel Sounds; No Organomegaly
Rectal: Deferred by Provider
Musculoskeletal: No Clubbing, No Cyanosis and No Edema
Skin: No Rash
Neuro: Nonfocal/grossly intact
# Rectal bleeding likely diverticular v internal hemorrhoids
# History of rectal bleeding secondary to diverticulosis
-Rectal exam showed small external hemorrhoid nonbleeding
-Hemoglobin stable
-no further bleeding
-f/u cbc outpt
-tolerating LRD - continue
-GI consulted - can f/u outpt
-Miralax q every other day v everyday
History of diverticulitis status post colon resection 14 years ago
Anxiety/depression
-Continue buspirone, mirtazapine
History of impaired fasting glucose
DNR/DNI
DVT prophylaxis�SCDs
More than 30 minutes spent in discharge including
Final examination of the patient
Summarizing hospital stay
Instructions for continuing care to all relevant caregivers
Preparation of discharge records, prescriptions, and referral forms
Total time spent (37 in minutes):
Anticipated Discharge: Today
Subjective/Interval History
-
Date of Service: September 05, 2024
no further bleeding, tolerating LRD
Objective Data
-
Labs:
Laboratory Results
09/05/24
05:02
WBC 9.4
Hgb 13.1
Hct 39.2
Plt Count 233 D
Sodium 139
Potassium 4.1
Chloride 102
Carbon Dioxide 26
BUN 19
Creatinine 1.0
Glucose 90
Calcium 9.4
Total Bilirubin 1.2
AST 31
ALT 28
Alkaline Phosphatase 79
Vital Signs:
Vital Signs
Temp Pulse Resp BP Pulse Ox
98 F 82 18 110/71 97
09/05/24 07:26 09/05/24 07:26 09/05/24 07:26 09/05/24 07:26 09/05/24 08:45
I&O
09/04/24 09/05/24 09/06/24
06:59 06:59 06:59
Intake Total 540 / 540 1200 / 1200
Output Total 1175 / 1175
Balance -635 / -635 1200 / 1200
Review of Systems
-
History Source: Patient
All other systems: Not reviewed unless documented
Physical Exam
-
General: Well Developed, Well Nourished and No Apparent Distress
HEENT: Normocephalic and Atraumatic
Respiratory: Clear to Auscultation; Negative Wheezes or Rhonchi
Cardiac: Regular Rhythm and S1/S2; Negative Murmur
GI: Soft, Nontender, Nondistended and Normal Bowel Sounds
Musculoskeletal: No Clubbing, No Cyanosis and No Edema
Neuro: Awake and Alert
Data Reviewed
-
Labs: Labs Reviewed by me
--- NOTE | 2024-09-05 14:41 | W.DS.TRANS ---
DC Summary - Ehs Specialist
-
Discharge Instructions:
Discharge Diagnosis/Procedures [facility]
Diet Low Cholesterol,Low Fat,Low Residue
Blood Work cbc in 1 week with pcp
Others Tests Colonoscopy as needed per GI
Instructions: Gastrointestinal Bleeding (DC)
Stand-Alone Forms:
Changes to Home Medications: Yes
Discharge Medications:
DC Medications w/original date entered in [employer]
mirtazapine 15 mg tablet 15 mg PO HS Mental Health/Anxiety 10/01/22
therapeutic multivitamin 1 tab PO QPM Supplement 10/01/22
vitamin B complex 1 cap PO DAILY Supplement 10/01/22
Lactobac no.2-Bifidobac no.1-S. thermo 112.5 billion cell capsule (Visbiome) 1 cap PO DAILY 08/18/23
docusate sodium 100 mg capsule (Colace) 100 mg PO DAILYPRN PRN constipation 08/18/23
buspirone 5 mg tablet 5 mg PO DAILY 09/03/24
vitamins A,C,J-qiqy-uasiij 2,148 mcg-113 mg-45 mg-17.4 mg tablet (PreserVision AREDS) 1 tab PO DAILY 09/03/24
polyethylene glycol 3350 17 gram/dose oral powder (Miralax) 4 g PO DAILY #850 grams 09/05/24
Home Medication Changes
polyethylene glycol 3350 17 gram/dose oral powder (Miralax) 4 g PO DAILY #850 grams 09/05/24
Pending Results: No
[2024-09-05 15:08] VITALS: BP 108/66
== END 2024-09-05 15:42 | disposition home or self-care (01) ==
LOC: 4 WEST ACU 13:50
PROVIDERS: Nurse Practitioner Adult Health; ADMITTING PHYSICIAN Hospitalist; ATTENDING PHYSICIAN Internal Medicine; CONSULT PHYSICIAN Internal Medicine Gastroenterology; EMERGENCY PHYSICIAN Emergency Medicine; FAMILY PHYSICIAN Internal Medicine Geriatric Medicine
DX: K62.5 Hemorrhage of anus and rectum (principal); Z90.49 Acquired absence of other specified parts of digestive tract; R07.9 Chest pain, unspecified; Z66 Do not resuscitate; F32.A Depression, unspecified; F41.9 Anxiety disorder, unspecified; K64.4 Residual hemorrhoidal skin tags; Z79.899 Other long term (current) drug therapy; K59.09 Other constipation; R13.10 Dysphagia, unspecified; K63.5 Polyp of colon; K64.8 Other hemorrhoids; R42 Dizziness and giddiness; G47.00 Insomnia, unspecified; M48.00 Spinal stenosis, site unspecified; N40.0 Benign prostatic hyperplasia without lower urinary tract symptoms; K76.0 Fatty (change of) liver, not elsewhere classified; Z85.828 Personal history of other malignant neoplasm of skin; Z86.0100 Personal history of colon polyps, unspecified; Z87.891 Personal history of nicotine dependence
CPT/HCPCS: 80053; 85014; 85018; 85025; 85027; 86850; 86900; 86901; 93005; 99285; G0378

== ENCOUNTER 2024-09-08 03:11 | Inpatient (IN) | payer MEDICARE, SELFPAY ==
[2024-09-07 21:13] VITALS: BP 125/74
[2024-09-07 21:33] LABS: % Basophils 0.7 % (0-2); % Eosinophils 2.3 % (0-6); % Immature Granulocytes 1.1 % (0-0.5); % Lymphocytes 30.8 % (20.5-51.1); % Monocytes 9.6 % (1.7-9.3); % Neutrophils 55.5 % (42.2-75.2); Absolute Basophils 0.1 10^3/uL (0-0.2); Absolute Eosinophils 0.2 10^3/uL (0-0.7); Absolute Immature Granulocytes 0.1 10^3/uL (0-0.05); Absolute Lymphocytes 2.2 10^3/uL (1.2-3.4); Absolute Monocytes 0.7 10^3/uL (0.1-0.6); Hematocrit 33.9 % (39.0-52.0); Hemoglobin 11.4 g/dL (13.0-18.0); Mean Corp Hgb Conc. 33.6 g/dL (33.0-37.0); Mean Corpuscular Hgb 31.5 pg (27.0-31.0); Mean Corpuscular Volume 93.6 fL (80.0-94.0); Mean Platelet Volume 8.5 fL (7.4-10.4); Nucleated Red Blood Cells % 0 % (-); Platelet Count 211 10^3/uL (130-400); Red Blood Cell Count 3.62 10^6/uL (4.70-6.10); Red Cell Dist. Width 14.2 % (11.5-14.5); White Blood Cell Count 7.1 10^3/uL (4.8-10.8)
[2024-09-07 21:42] LABS: INR 0.94; PT 13.1 Sec (11.4-14.6)
[2024-09-07 21:43] LABS: APTT 26.2 Sec (23.4-35.0)
[2024-09-07 22:00] LABS: ALT (SGPT) 29 U/L (0-50); AST (SGOT) 31 U/L (17-59); Albumin 3.9 g/dl (3.5-5.0); Alkaline Phosphatase 80 U/L (38-126); Blood Urea Nitrogen 18 mg/dl (9-20); Calcium 9.4 mg/dl (8.4-10.2); Carbon Dioxide 28 mmol/L (22-30); Chloride 104 mmol/L (98-107); Glucose 95 mg/dl (70-99); Potassium 4.2 mmol/L (3.5-5.1); Sodium 137 mmol/L (135-145); Total Bilirubin 0.5 mg/dl (0.2-1.3); Total Protein 6.2 g/dl (6.3-8.2); eGFR > 60.00
[2024-09-08] VITALS (12 sets, daily range): BP systolic 93–138; BP diastolic 60–82; BMI 23.0; BMI 22.5
--- NOTE | 2024-09-08 00:42 | ED.GENMED ---
History of Present Illness
General
Chief Complaint: Rectal Bleeding
Source: patient
Exam Limitations: none
Time Seen by Provider: 09/08/24 00:19
Nursing documentation reviewed up to this point in time: agreed with
History of Present Illness
History of Present Illness:
Pleasant 83-year-old male presents to the emergency department with rectal bleeding. He states that he was getting ready to go to bed and he was dripping dark blood onto the floor. He sat on the toilet and noticed blood in his stool. Patient was
in the emergency department on Wednesday and admitted with rectal bleeding. He states that the bleeding resolved and he was discharged home. Patient denies fever, chills, abdominal pain, shortness of breath, or chest pain. He denies lightheadedness
or weakness.
Past History
Past History
ED Past Medical History: COPD
ED Past Surgical History: Appendectomy, Bowel resection and Cholecystectomy
Phy Exam
General Physical Exam
General Presentation: well appearing and no apparent distress
General Skin: warm and dry
General Habitus: normal
General Mental: alert
General Hydration: appears well hydrated
ENT Exam
ENT Exam: EOMI, pharynx normal, neck supple and normocephalic
Eye Exam
Eye Exam: PERRL, cornea clear and conjunctiva normal
Cardiovascular Exam
Cardiovascular Exam: regular rate/rhythm, no edema, no murmur and normal peripheral pulses
Pulmonary Exam
Pulmonary Exam: lungs clear, no respiratory distress, no rales, no crackles, no rhonchi, no stridor, no wheezing and no cough
Gastrointestinal Exam
Gastrointestinal Exam: normal bowel sounds, non tender, soft, no organomegaly, no pulsatile mass and non distended
Palpation: left upper quadrant: No tenderness, left lower quadrant: No tenderness, right upper quadrant: No tenderness, right lower quadrant: No tenderness and generalized: No tenderness
Stool: maroon
Guaiac Status: grossly bloody - positive
Neurological Exam
Neurological Exam: alert, oriented x3, no motor deficits and speech normal
Musculoskeletal Exam
Musculoskeletal Exam: full ROM and no edema
Skin Exam
Skin Exam: normal color, warm/dry, no rash and no petechia
Psychiatric Exam
Psychiatric Exam: normal mood/affect
Course
Orders/Labs/Results
Orders:
Orders
09/07/24 21:12
EKG [Electrocardiogram (*1)] Urgent
Reason for Study: Other
Other Reason for Exam: gi bleed
09/07/24 21:13
EKG- Treatment ONCE
09/07/24 21:25
Type+Screen Urgent
Complete Blood Count/With Diff Urgent
Comprehensive Metabolic Panel Urgent
PTT Urgent
Prothrombin Time Urgent
Abnormal Lab Results
09/07/24
21:25
RBC 3.62 L 10^6/uL
(4.70-6.10)
Hgb 11.4 L g/dL
(13.0-18.0)
Hct 33.9 L %
(39.0-52.0)
MCH 31.5 H pg
(27.0-31.0)
Abs Immat Gran (auto) 0.1 H 10^3/uL
(0-0.05)
Absolute Monos (auto) 0.7 H 10^3/uL
(0.1-0.6)
Immature Gran % 1.1 H %
(0-0.5)
Monocytes % 9.6 H %
(1.7-9.3)
Total Protein 6.2 L g/dl
(6.3-8.2)
09/07/24 21:25
09/07/24 21:25
Vital Signs
Initial and Last Documented VS:
Initial Vital Signs
Temp Pulse Resp BP Pulse Ox
97.8 F 63 16 125/74 98
09/07/24 21:13 09/07/24 21:13 09/07/24 21:13 09/07/24 21:13 09/07/24 21:13
Last Documented Vital Signs
Temp Pulse Resp BP Pulse Ox
97.8 F 80 19 119/71 96
09/07/24 21:13 09/08/24 00:30 09/08/24 00:30 09/08/24 00:07 09/08/24 00:30
MDM/Problems Addressed
Differential Diagnosis Includes:
GI bleed
MDM/Problems Addressed:
83-year-old male with stable GI bleed
Chronic conditions affecting care:
Acute on chronic GI bleeds
*Pulse Oximetry
Patient hypoxic: no
*Critical Care Note
Total Time (30-74mins, 75-104mins- exclusive of procedures): Not Applicable
Data Reviewed
Review of Other/Old Records Reveals: Records, Testing, Progress Notes and Discharge Summary
Source: patient
Patient Management
Social determinants of health affecting care: Living situation
Discussion with other providers: Hospitalist
Update Note
Update Note:
Hemoglobin dropped from 13.1-11.4 in the 2-day timeframe.
ED Attending Note
-
Portions of this chart may have been created with voice recognition software.� Occasional wrong word or��sound alike� substitutions may have occurred due to the inherent limitations of voice recognition software.
Discharge Plan
Departure
Patient Disposition: Admit
Date of Disposition: 09/08/24
Time of Disposition: 00:46
Admit to: Telemetry
Presentation/result/management discussed w/ accepting MD/DO: Hospitalist
Condition: Good
Discharge Problem:
Acute GI bleeding, Acute blood loss anemia
Prescriptions:
No Action
therapeutic multivitamin Tablet
1 tab PO QPM
mirtazapine 15 mg tablet
15 mg PO HS
vitamin B complex Capsule
1 cap PO DAILY
docusate sodium [Colace] 100 mg Capsule
100 mg PO DAILYPRN PRN (Reason: constipation)
Visbiome 112.5 billion cell Capsule
1 cap PO DAILY
buspirone 5 mg Tablet
5 mg PO DAILY
PreserVision AREDS 2,148 mcg-113 mg-45 mg-17.4mg Tablet
1 tab PO DAILY
polyethylene glycol 3350 [Miralax] 17 gram/dose powder
4 g PO DAILY Qty: 850 0RF
Rx Instructions:
every day or every other day; can trial half the dose if feels more comfortable
cholecalciferol (vitamin D3) [Vitamin D3] 25 mcg (1,000 unit) Capsule
25 mcg PO DAILY
Referrals:
Derek Kendrick MD [Family Provider] -
Interventions
Interventions:
*Risk Screen - Suicide Last Done: 09/07/24 21:13
*General Assessment Last Done: 09/08/24 00:04
*Neglect/Abuse Screening Last Done: 09/07/24 21:13
ED- Fall Risk Assessment Last Done: 09/08/24 00:04
*ED COVID-19 Vaccine History Last Done: 09/08/24 00:04
QK-Vtcjzf-Snlyknjqwd Assessment Last Done: 09/08/24 00:14
ED- Cardiac Assessment Last Done: 09/08/24 00:14
ED- Pulmonary Assessment Last Done: 09/08/24 00:14
Discharge Date and Time
Print Language: BHUTANESE
--- NOTE | 2024-09-08 02:44 | HPS.HSE ---
Family Physician
-
Family Physician: Derek Kendrick
Chief Complaint
-
Recurrent rectal bleeding
History of Present Illness
This is a 83-year-old male with past medical history significant for BPH, insomnia, history of vertigo, basal cell cancer, fatty liver, prior episode of GI bleed status post colonoscopy 3 years ago was recently admitted with rectal bleeding and
discharged 2 days ago after spontaneous cessation with stable hemoglobin and now returns to the emergency department after having bloody bowel movement for his first bowel movement since his discharge.
Patient reported that he did have clear bowel movement prior to discharge. However is found positive bowel movement after discharge was after his breakfast and use of MiraLAX. He was also attempting to have dinner when he felt like having a bowel
movement. He had a bowel movement and felt like there was something dripping after the bowel movement. When he looked in the commode he saw bright red blood. He denied any pain with bowel movement. He denied any new constipation, abdominal
distention or discomfort. He denies any nausea or vomiting. He has no fevers or chills. He denies feeling dizzy or lightheaded. Reports is only had 1 regular meal since his discharge from the hospital. Staff at the facility saw the bloody bowel
movement and sent him to the ED.
In the ED blood pressure was 110/67 with a pulse of 76. He was satting 95% on room air and afebrile. ECG is unremarkable with normal sinus rhythm and a known left anterior fascicular block. INR was 0.97. Hemoglobin was 11.4 which is down from
around 13 2 days ago. Electrolytes BUN/creatinine were all normal.
Medical History
Past Medical History
Past Medical History: Reports Other (diverticulitis status post colon resection 14 years ago, diverticular bleeding, anxiety/depression)
Past Surgical History: Reports Other (colon resection )
Social History
Tobacco: Non-smoker
Alcohol: None
Drug: None
Family History
Family History: Not pertinent
Allergies / Home Medications
Allergies reflects when Allergies were last updated in [facility] [employer].
Home Medications with original date entered in [facility]
Allergy/Medication List:
Allergies
Allergy/AdvReac Type Severity Reaction Status Date / Time
tamsulosin [From Flomax] Allergy Unknown Unknown Verified 09/07/24 21:13
zolpidem Allergy Unknown Verified 09/07/24 21:13
Home Medications
mirtazapine 15 mg tablet 15 mg PO HS Mental Health/Anxiety 10/01/22
therapeutic multivitamin 1 tab PO QPM Supplement 10/01/22
vitamin B complex 1 cap PO DAILY Supplement 10/01/22
Lactobac no.2-Bifidobac no.1-S. thermo 112.5 billion cell capsule (Visbiome) 1 cap PO DAILY 08/18/23
docusate sodium 100 mg capsule (Colace) 100 mg PO DAILYPRN PRN constipation 08/18/23
buspirone 5 mg tablet 5 mg PO DAILY 09/03/24
vitamins A,C,I-ozdx-rcrsha 2,148 mcg-113 mg-45 mg-17.4 mg tablet (PreserVision AREDS) 1 tab PO DAILY 09/03/24
polyethylene glycol 3350 17 gram/dose oral powder (Miralax) 4 g PO DAILY #850 grams 09/05/24
cholecalciferol (vitamin D3) 25 mcg (1,000 unit) capsule (Vitamin D3) 25 mcg PO DAILY 09/08/24
Review of Systems
-
History Source: Patient
Constitutional: Reports No Symptoms
EENT: Reports No Symptoms
Respiratory: Reports No Symptoms
Cardiac: Reports No Symptoms
Abdomen/GI: Reports Bloody Stools
: Reports No Symptoms
Musculoskeletal: Reports No Symptoms
Skin: Reports No Symptoms
Neurological: Reports No Symptoms
Endocrine: Reports No Symptoms
Hematologic/Lymphatic: Reports No Symptoms
Psych: Reports No Symptoms
Physical Exam
Vital Signs
Vital Signs
Temp Pulse Resp BP Pulse Ox
97.8 F 74 16 113/71 96
09/07/24 21:13 09/08/24 02:31 09/08/24 02:31 09/08/24 02:31 09/08/24 02:31
Physical Exam
General: Well Developed and No Apparent Distress
HEENT: NormoCephalic, Anicteric, Moist mucous membranes and Atraumatic
Respiratory: Clear
Cardiac: S1/S2 and Regular Rhythm
Breast: Deferred by me
GI: Soft, Non Distended and Normal Bowel Sounds
Rectal: Red
Genito-urinary: Deferred by me
Musculoskeletal: No Clubbing, No Cyanosis and No Edema
Skin: Warm
Neuro: AO x 3 and Nonfocal/grossly intact
Hematologic/Lymphatic: No Lymphadenopathy
Psych: Calm
Laboratory Results
-
09/07/24 21:25
09/07/24 21:25
Laboratory Results
PT 13.1 Sec (11.4-14.6) 09/07/24 21:25
INR 0.94 09/07/24 21:25
APTT 26.2 Sec (23.4-35.0) 09/07/24 21:25
Total Bilirubin 0.5 mg/dl (0.2-1.3) 09/07/24 21:25
AST 31 U/L (17-59) 09/07/24 21:25
ALT 29 U/L (0-50) 09/07/24 21:25
Alkaline Phosphatase 80 U/L (38-126) 09/07/24 21:25
Data Reviewed
-
Medical Tests (Nuc Med, Echo, EKG etc): Image Personally Visualized and interpreted
Lab Data: Labs Reviewed by me
Old Records: Reviewed
Impression/Plan
-
IMPRESSION:
Patient with history of diverticuli, internal hemorrhoids, recent lower GI bleed with spontaneous cessation thought to be either secondary to hemorrhoids versus diverticular bleed presents to the emergency department with recurrent lower GI bleed.
Hemoglobin is slightly reduced to 11.3 from age 11 on discharge. He is hemodynamically stable and well-appearing. He had only 1 bloody bowel movement and has not had an additional 1 since. Since he has bowel movement did clear prior to discharge
it appears that this is a nail plate and not old blood was in the vault. No aspirin no NSAIDs no thinners.
PLAN:
GI Bleed -recurrent lower GI bleed, hemodynamically stable
- admit to telemetry
- clear liquid diet
- H&H q 8 for now
- Vitals q 4
- transfuse for Hgb < 8 or acute bleed
- no indication for CT GI bleed at this time (not currently having blood bm)
- likely diverticular but no certainty.
- GI consultation
DVT PPX - SCDs
Code Status - Full Code
[2024-09-08] MEDS: D5/0.45%NACL 1000 IV (08:00)
[2024-09-08] MEDS: BUSPAR 5 MG PO (08:05)
[2024-09-08 08:20] LABS: Hematocrit 30.7 % (39.0-52.0); Hemoglobin 10.4 g/dL (13.0-18.0); Mean Corp Hgb Conc. 33.9 g/dL (33.0-37.0); Mean Corpuscular Hgb 31.3 pg (27.0-31.0); Mean Corpuscular Volume 92.5 fL (80.0-94.0); Mean Platelet Volume 8.7 fL (7.4-10.4); Platelet Count 176 10^3/uL (130-400); Red Blood Cell Count 3.32 10^6/uL (4.70-6.10); Red Cell Dist. Width 14.4 % (11.5-14.5); White Blood Cell Count 5.3 10^3/uL (4.8-10.8)
[2024-09-08 08:55] LABS: Blood Urea Nitrogen 17 mg/dl (9-20); Calcium 9.1 mg/dl (8.4-10.2); Carbon Dioxide 28 mmol/L (22-30); Chloride 106 mmol/L (98-107); Estimated Creatinine Clearance 60 ml/min; Glucose 86 mg/dl (70-99); Potassium 4.1 mmol/L (3.5-5.1); Sodium 138 mmol/L (135-145); eGFR > 60.00
--- NOTE | 2024-09-08 09:14 | CON.GI ---
Addendum entered and electronically signed by Rogelio Banerjee MD 09/08/24 15:11:
I saw and examined the patient.
The medical detail representative's note was reviewed and I agree with the note.
--Recurrent lower GI bleeding -diverticular versus hemorrhoidal. Recently discharged from the hospital. Denies any bleeding since admission. Last colonoscopy 09/2022-details below
plan
Continue monitor H&H
Okay to advance diet to low residual diet
Will hold off on colonoscopy for now
Daily bowel regimen for constipation on discharge
Original Note:
Consultation
-
Date/Time Consultation Requested: 09/08/24 05:06
Date/Time Consultation Performed: 09/08/24 09:05
Requesting Provider: Yolie Cui MD
Performing Provider: Mara Del Cid MD
Reason for Consultation: GI bleeding
Medical History
Chief Complaint / HPI
Chief Complaint: Rectal bleeding
History of Present Illness:
The patient is a 82 years old male with a past medical history of basal cell carcinoma, vertigo, BPH, insomnia and and gastrointestinal problems including fatty liver, hx of diverticulitis s/p colon resection about 14 years ago and also hx of lower
GI bleed presumed to be diverticular in 2022. Due his GI bleeding he underwent a colonoscopy in 2022 admission which showed colon polyps (tubular adenomas and inflammatory polyp), diverticulosis and hemorrhoids. He had a recent hospitalization
with similar complaints reporting a few episodes of painless rectal bleeding on 09/03/24, during that admission his GI bleeding spontaneously resolved and, he was discharged after having a normal bowel movement. Following, the day after the
discharge, the patient noticed some dark-colored blood drips on the floor and fresh colored blood in the toilet bowl. The patient reports, he feels he bled less than the previous time when he was admitted last week. He has not had any further
bleeding today and reports his last bowel movement was yesterday. He denies any abdominal pain, dysphagia, odynophagia, heartburn, rectal pain, nausea, vomiting, shortness of breath , chest pain, fevers or chills. He endorses having chronic
constipation he has tried a couple of ctqs-bkq-vtrlyjp laxatives and he took MiraLAX yesterday. He reports he gets diarrhea sometimes with MiraLAX and sometimes he thinks it does not help his constipation at all. He reports having difficulty
with transportation and states that is the reason why he did not schedule any appointment with GI department to address his chronic constipation problem
Past Medical History
Past Medical History: Other (diverticulitis status post colon resection 14 years ago, diverticular bleeding, anxiety/depression, basal cell carcinoma, BPH, vertigo)
Past Surgical History: Other (Colon resection)
Social History
Tobacco: Non-Smoker
Alcohol: None
Drug: None
Family History
Family History: Reviewed & Not Pertinent
Allergies / Home Medications
Allergy/AdvReac Type Severity Reaction Status Date / Time
tamsulosin [From Flomax] Allergy Unknown Unknown Verified 09/07/24 21:13
zolpidem Allergy Unknown Verified 09/07/24 21:13
�Medication �Instructions �Recorded
mirtazapine 15 mg tablet 15 mg PO HS Mental Health/Anxiety 10/01/22
therapeutic multivitamin 1 tab PO QPM Supplement 10/01/22
vitamin B complex 1 cap PO DAILY Supplement 10/01/22
Lactobac no.2-Bifidobac no.1-S. 1 cap PO DAILY 08/18/23
thermo 112.5 billion cell capsule
(Visbiome)
docusate sodium 100 mg capsule 100 mg PO DAILYPRN PRN constipation 08/18/23
(Colace)
buspirone 5 mg tablet 5 mg PO DAILY 09/03/24
vitamins A,C,R-psid-rbtryd 2,148 1 tab PO DAILY 09/03/24
mcg-113 mg-45 mg-17.4 mg tablet
(PreserVision AREDS)
polyethylene glycol 3350 17 4 g PO DAILY #850 grams 09/05/24
gram/dose oral powder (Miralax)
cholecalciferol (vitamin D3) 25 25 mcg PO DAILY 09/08/24
mcg (1,000 unit) capsule (Vitamin
D3)
Review of Systems
-
History Source: Patient
Constitutional: Reports No Symptoms
EENT: Reports No Symptoms
Respiratory: Reports No Symptoms
Cardiac: Reports No Symptoms
Abdomen/GI: Reports Bloody Stools and Other (Per chart review, has history of dysphagia, patient denies having difficulty with swallowing)
: Reports No Symptoms
Musculoskeletal: Reports No Symptoms
Skin: Reports No Symptoms
Neurological: Reports Other (Balance issues)
Vital Signs
Temp Pulse Resp BP Pulse Ox
98.3 F 80 17 138/78 98
09/08/24 07:35 09/08/24 07:35 09/08/24 07:35 09/08/24 07:35 09/08/24 07:35
Physical Exam
Exam
General: Well Developed, Well Nourished and No Apparent Distress
HEENT: Normocephalic and Anicteric
Respiratory: Clear
Cardiac: S1/S2 and Regular Rhythm
GI: Soft, Non Tender and Non Distended
Rectal: Brown, Black, Hem Positive and Other
Musculoskeletal: No Clubbing, No Cyanosis and No Edema
Skin: Warm
Neuro: Awake, Alert, Oriented, AO x 3 and Nonfocal/Grossly Intact
Psych: Calm
Results
WBC 5.3 10^3/uL (4.8-10.8) 09/08/24 08:06
Hgb 10.4 g/dL (13.0-18.0) L 09/08/24 08:06
Hct 30.7 % (39.0-52.0) L 09/08/24 08:06
MCV 92.5 fL (80.0-94.0) 09/08/24 08:06
Plt Count 176 10^3/uL (130-400) 09/08/24 08:06
Absolute Neuts (auto) 4.0 10^3/uL (1.4-6.5) 09/07/24 21:25
PT 13.1 Sec (11.4-14.6) 09/07/24 21:25
INR 0.94 09/07/24 21:25
APTT 26.2 Sec (23.4-35.0) 09/07/24 21:25
Sodium 138 mmol/L (135-145) 09/08/24 08:06
Potassium 4.1 mmol/L (3.5-5.1) 09/08/24 08:06
Chloride 106 mmol/L (98-107) 09/08/24 08:06
Carbon Dioxide 28 mmol/L (22-30) 09/08/24 08:06
BUN 17 mg/dl (9-20) 09/08/24 08:06
Creatinine 0.9 mg/dL (0.7-1.3) 09/08/24 08:06
Calcium 9.1 mg/dl (8.4-10.2) 09/08/24 08:06
Total Bilirubin 0.5 mg/dl (0.2-1.3) 09/07/24 21:25
AST 31 U/L (17-59) 09/07/24 21:25
ALT 29 U/L (0-50) 09/07/24 21:25
Alkaline Phosphatase 80 U/L (38-126) 09/07/24 21:25
Diagnostic Image Results:
Prior GI Procedures:
EGD: none
Colonoscopy:09/2022-Dr. Murtaza Lima-hemorrhoids, normal ileum, blood in entire colon, diverticulosis, 5 mm polyp AC, 9 mm polyp Descending colon, 9 mm polyp Descending colon, hemorrhoids bx TA and inflammatory polyp.
Assessment / Plan
-
Assessment
Mr. Schwartz is a 83-year-old male with a significant past medical history of gastrointestinal problems including hx of diverticulitis s/p colon resection about 14 years ago, diverticular bleeding in 2022 and chronic constipation. He had a recent
hospitalization on 09/03/2024 with similar complaints and his GI bleeding spontaneously resolved, the patient was discharged after having a normal bowel movement. Following his discharge, 2 days later, he presented with painless rectal bleeding to
ER this am and reported he bled once and less this time comparing to his previous presentation. Denies any other associated GI symptoms including abdominal pain, dysphagia, odynophagia, heartburn, rectal pain, nausea, vomiting. Endorses chronic
constipation problem for years and has tried many laxatives in the past but not regularly. Denies NSAID, aspirin, other anticoagulant use, sick contacts. Reports his last bowel movement was yesterday with blood which was the first and last bowel
movement since his recent discharge on 09/05/24. On this admission, his lab results were significant for decreased hemoglobin level to 10.4. On rectal exam, no mass was palpated, Hemoccult test was positive.
Impression
-Recurrent GI bleeding
-vertigo
-insomnia
-Spinal stenosis
-BPH
-Basal cell CA
-Fatty liver
Plan
#GI Bleed likely secondary to diverticular bleeding versus hemorrhoids versus neoplasm
-hemodynamically stable/if increased bleeding consider CTA (no indication for CTA now)-last BM yesterday(only one BM since last discharge)
-Hemoglobin slightly decreased since last admission ( 13.1 to 10.4 in last 3 days)
-Will consider colonoscopy with prep if persistent bleeding
-Follow-up hemoglobin levels q8H and stool records
-Consider transfuse for Hgb < 8 or acute bleed
-clear liquid diet
-MiraLAX and Linzess can be considered to prevent constipation at discharge
-
-
Thank you for consultation and allowing me to participate in the patient's care. Please call the industrial organizational psychologist GI physician during the after hours with any questions or concerns.
--- NOTE | 2024-09-08 11:50 | CM ---
CM following re: discharge planning.
Reviewed pt's chart, met with pt and pt's friend Nadeen at bedside.
Pt is an 83 year old male admitted with primary dx of Rectal bleeding.
Pt reports he lives alone in an independent apartment at [facility]. Pt reports he has niece who lives in [facility] and she has POA. Pt reports he uses a cane when goes outside. No VN or SNF history. Pt expressed his desire to return back
home at discharge.
PCP: Derek Marroquin
Pharmacy: [facility].
D/C plan: home with anticipated no needs.
CM will follow with discharge plan updates as hospitalization progresses
[2024-09-08 13:56] LABS: Hematocrit 34.4 % (39.0-52.0); Hemoglobin 11.4 g/dL (13.0-18.0)
--- NOTE | 2024-09-08 15:15 | W.PN.UPDATE ---
Update Note
Progress Note Update
adv to lrd
monitor hgb
[2024-09-08] MEDS: REMERON 15 MG PO (21:16)
[2024-09-09] MEDS: D5/0.45%NACL 1000 IV (01:02)
[2024-09-09 03:30] VITALS: BP 137/73
[2024-09-09 06:47] LABS: Hematocrit 31.1 % (39.0-52.0); Hemoglobin 10.7 g/dL (13.0-18.0); Mean Corp Hgb Conc. 34.4 g/dL (33.0-37.0); Mean Corpuscular Hgb 32.1 pg (27.0-31.0); Mean Corpuscular Volume 93.4 fL (80.0-94.0); Mean Platelet Volume 8.9 fL (7.4-10.4); Platelet Count 204 10^3/uL (130-400); Red Blood Cell Count 3.33 10^6/uL (4.70-6.10); Red Cell Dist. Width 14.3 % (11.5-14.5); White Blood Cell Count 7.3 10^3/uL (4.8-10.8)
[2024-09-09 07:06] LABS: Blood Urea Nitrogen 12 mg/dl (9-20); Calcium 9.4 mg/dl (8.4-10.2); Carbon Dioxide 29 mmol/L (22-30); Chloride 105 mmol/L (98-107); Estimated Creatinine Clearance 60 ml/min; Glucose 91 mg/dl (70-99); Potassium 4.2 mmol/L (3.5-5.1); Sodium 140 mmol/L (135-145); eGFR > 60.00
[2024-09-09 07:45] VITALS: BP 136/82
[2024-09-09] MEDS: BUSPAR 5 MG PO (08:15)
[2024-09-09 11:11] VITALS: BP 114/70
--- NOTE | 2024-09-09 11:39 | W.PN.HOSP.TC ---
Addendum entered and electronically signed by Liu Rodríguez MD 09/10/24 16:27:
[id number]
Original Note:
Today's Communication/Plan
-
cbc in 1 week
informed to come back for repeated event
f/u gi and pcp outpt
Assessment / Plan
Assessment / Plan
Physical Exam
General: Well Developed and No Apparent Distress
HEENT: NormoCephalic, Anicteric, Moist mucous membranes and Atraumatic
Respiratory: Clear
Cardiac: S1/S2 and Regular Rhythm
Breast: Deferred by me
GI: Soft, Non Distended and Normal Bowel Sounds
Rectal: Red
Genito-urinary: Deferred by me
Musculoskeletal: No Clubbing, No Cyanosis and No Edema
Skin: Warm
Neuro: AO x 3 and Nonfocal/grossly intact
Hematologic/Lymphatic: No Lymphadenopathy
Psych: Calm
Patient with history of diverticuli, internal hemorrhoids, recent lower GI bleed with spontaneous cessation thought to be either secondary to hemorrhoids versus diverticular bleed presents to the emergency department with recurrent lower GI bleed.
Hemoglobin is slightly reduced to 11.3 from age 11 on discharge. He is hemodynamically stable and well-appearing. He had only 1 bloody bowel movement and has not had an additional 1 since. Since he has bowel movement did clear prior to discharge
it appears that this is a nail plate and not old blood was in the vault. No aspirin no NSAIDs no thinners.
PLAN:
GI Bleed -recurrent lower GI bleed, hemodynamically stable
� Probable diverticular versus hemorrhoidal
� Hemoglobin remained stable
� Tolerating low residue diet
� Holding off on colonoscopy as per GI
� Clear for discharge as per GI
� Follow-up CBC outpatient within 1 week
Follow-up GI outpatient
DVT PPX - SCDs
Code Status - Full Code
More than 30 minutes spent in discharge including
Final examination of the patient
Summarizing hospital stay
Instructions for continuing care to all relevant caregivers
Preparation of discharge records, prescriptions, and referral forms
Total time spent (36 in minutes):
Anticipated Discharge: Today
Subjective/Interval History
-
Date of Service: September 09, 2024
No further bright red blood per rectum
Objective Data
-
Labs:
Laboratory Results
09/09/24
06:14
WBC 7.3
Hgb 10.7 L
Hct 31.1 L
Plt Count 204
Sodium 140
Potassium 4.2
Chloride 105
Carbon Dioxide 29
BUN 12
Creatinine 0.9
Glucose 91
Calcium 9.4
Vital Signs:
Vital Signs
Temp Pulse Resp BP Pulse Ox
98.0 F 89 20 114/70 97
09/09/24 11:11 09/09/24 11:11 09/09/24 11:11 09/09/24 11:11 09/09/24 11:11
I&O
09/08/24 09/09/24 09/10/24
06:59 06:59 06:59
Intake Total 120 / 120 2580 / 2580
Output Total 2775 / 2775
Balance 120 / 120 -195 / -195
Review of Systems
-
History Source: Patient
All other systems: Not reviewed unless documented
Data Reviewed
-
Ultrasound: Report Reviewed by me
Labs: Labs Reviewed by me
--- NOTE | 2024-09-09 11:44 | W.DS.TRANS ---
DC Summary - Clock Smith
-
Discharge Instructions:
Sleep Apnea Risk Low
Discharge Diagnosis/Procedures Recurrent lower GI bleeding
Additional Diets high fiber diet
Activity As tolerated
Blood Work cbc and bmp in 3-5 days
Others Tests colonoscopy as per gi
Instructions:
Stand-Alone Forms:
Changes to Home Medications: No
Discharge Medications:
DC Medications w/original date entered in [facility]
mirtazapine 15 mg tablet 15 mg PO HS Mental Health/Anxiety 10/01/22
therapeutic multivitamin 1 tab PO QPM Supplement 10/01/22
vitamin B complex 1 cap PO DAILY Supplement 10/01/22
Lactobac no.2-Bifidobac no.1-S. thermo 112.5 billion cell capsule (Visbiome) 1 cap PO DAILY 08/18/23
docusate sodium 100 mg capsule (Colace) 100 mg PO DAILYPRN PRN constipation 08/18/23
buspirone 5 mg tablet 5 mg PO DAILY 09/03/24
vitamins A,C,I-amlj-ytjytd 2,148 mcg-113 mg-45 mg-17.4 mg tablet (PreserVision AREDS) 1 tab PO DAILY 09/03/24
polyethylene glycol 3350 17 gram/dose oral powder (Miralax) 4 g PO DAILY #850 grams 09/05/24
cholecalciferol (vitamin D3) 25 mcg (1,000 unit) capsule (Vitamin D3) 25 mcg PO DAILY 09/08/24
Home Medication Changes
na
Pending Results: Yes
--- NOTE | 2024-09-09 12:11 | W.PN.GI.CBS2 ---
Today's Communication / Plan
-
Daily bowel regimen
Outpatient GI follow up
Assessment / Plan
-
Assessment
Mr. Schwartz is a 83-year-old male with a significant past medical history of gastrointestinal problems including hx of diverticulitis s/p colon resection about 14 years ago, diverticular bleeding in 2022 and chronic constipation. He had a recent
hospitalization on 09/03/2024 with similar complaints and his GI bleeding spontaneously resolved, the patient was discharged after having a normal bowel movement. Following his discharge, 2 days later, he presented with painless rectal bleeding to
ER this am and reported he bled once and less this time comparing to his previous presentation. Denies any other associated GI symptoms including abdominal pain, dysphagia, odynophagia, heartburn, rectal pain, nausea, vomiting. Endorses chronic
constipation problem for years and has tried many laxatives in the past but not regularly. Denies NSAID, aspirin, other anticoagulant use, sick contacts. Reports his last bowel movement was yesterday with blood which was the first and last bowel
movement since his recent discharge on 09/05/24. On this admission, his lab results were significant for decreased hemoglobin level to 10.4. On rectal exam, no mass was palpated, Hemoccult test was positive.
--Recurrent lower GI bleeding -diverticular versus hemorrhoidal vs residual blood. Recently discharged from the hospital. Denies any bleeding since admission. Last colonoscopy 09/2022-details below
plan
BMs with brown stools.Hb relatively stable. tolerating diet
Daily bowel regimen for constipation on discharge
GI follow up as outpatient to discuss about colonoscopy
will s/o
Total Time Spent with Patient (in minutes): 35
Subjective
Subjective
Date of Service: September 09, 2024
BM with brown stools
Objective
Data Reviewed
Laboratory Data:
Laboratory Results
09/09/24 06:14
09/09/24 06:14
Laboratory Results
PT 13.1 Sec (11.4-14.6) 09/07/24 21:
INR 0.94 09/07/24 21:
APTT 26.2 Sec (23.4-35.0) 09/07/24:
Total Bilirubin 0.5 mg/dl (0.2-1.3) 09/07/24:
AST 31 U/L (17-59) 09/07/24:
ALT 29 U/L (0-50) 09/07/24:
Alkaline Phosphatase 80 U/L (38-126) 09/07/24:
Vital Signs and I&O:
Vital Signs
Temp Pulse Resp BP Pulse Ox
98.0 F 89 20 114/70 97
09/09/24 11:11 09/09/24 11:11 09/09/24 11:11 09/09/24 11:11 09/09/24 11:11
I&O
09/08/24 09/09/24 09/10/24
06:59 06:59 06:59
Intake Total 120 / 120 2580 / 2580
Output Total 2775 / 2775
Balance 120 / 120 -195 / -195
Physical Exam
Physical Exam
GI: Soft, Non Distended and Non Tender
--- NOTE | 2024-09-09 13:33 | CM ---
CM reviewed pt with Dr Rodríguez- pt ready for dc
Bedside meeting with pt and his friend
No dc needs noted
IMM verbally reviewed- copy provided
Per friend, he was admitted last week and noted they did not receive a HERNANDEZ notice
They would be interested in reviewing a blank copy
CM reviewed chart and per CM notes, HERNANDEZ was provided by CM during last admission
Blank copy provided- they are not pleased that blank form has pt name on it
Dismissed CM
Discharge Disposition- home, no needs, friend transport
== END 2024-09-09 14:25 | disposition home or self-care (01) | DRG 393 ==
LOC: 1 ACUTE 03:11
PROVIDERS: Student in an Organized Health Care Education/Training Program; ADMITTING PHYSICIAN Internal Medicine; ATTENDING PHYSICIAN Internal Medicine; CONSULT PHYSICIAN Internal Medicine Gastroenterology; EMERGENCY PHYSICIAN Student in an Organized Health Care Education/Training Program; FAMILY PHYSICIAN Internal Medicine Geriatric Medicine
DX: K64.8 Other hemorrhoids (principal); K57.31 Diverticulosis of large intestine without perforation or abscess with bleeding; D62 Acute posthemorrhagic anemia; K76.0 Fatty (change of) liver, not elsewhere classified; G47.00 Insomnia, unspecified; I44.4 Left anterior fascicular block; J44.9 Chronic obstructive pulmonary disease, unspecified; N40.0 Benign prostatic hyperplasia without lower urinary tract symptoms; K59.09 Other constipation; Z79.899 Other long term (current) drug therapy; Z90.49 Acquired absence of other specified parts of digestive tract; Z86.0100 Personal history of colon polyps, unspecified; Z85.828 Personal history of other malignant neoplasm of skin
CPT/HCPCS: 80048; 80053; 85014; 85018; 85025; 85027; 85610; 85730; 86850; 86900; 86901; 87070; 93005; 99285

== ENCOUNTER → 2024-09-13 10:08 | Outpatient (REF) | payer MEDICARE, SELFPAY ==
[2024-09-13 11:03] LABS: % Basophils 0.9 % (0-2); % Immature Granulocytes 0.6 % (0-0.5); % Lymphocytes 43.2 % (20.5-51.1); % Monocytes 9.5 % (1.7-9.3); % Neutrophils 42.8 % (42.2-75.2); Absolute Basophils 0.1 10^3/uL (0-0.2); Absolute Eosinophils 0.2 10^3/uL (0-0.7); Absolute Immature Granulocytes 0.1 10^3/uL (0-0.05); Absolute Lymphocytes 3.5 10^3/uL (1.2-3.4); Absolute Monocytes 0.8 10^3/uL (0.1-0.6); Absolute Neutrophils 3.5 10^3/uL (1.4-6.5); Hematocrit 35.1 % (39.0-52.0); Hemoglobin 11.2 g/dL (13.0-18.0); Mean Corp Hgb Conc. 31.9 g/dL (33.0-37.0); Mean Corpuscular Hgb 30.8 pg (27.0-31.0); Mean Corpuscular Volume 96.4 fL (80.0-94.0); Mean Platelet Volume 8.7 fL (7.4-10.4); Nucleated Red Blood Cells % 0 % (-); Platelet Count 279 10^3/uL (130-400); Red Blood Cell Count 3.64 10^6/uL (4.70-6.10); Red Cell Dist. Width 14.4 % (11.5-14.5); White Blood Cell Count 8.1 10^3/uL (4.8-10.8)
[2024-09-13 11:19] LABS: Blood Urea Nitrogen 17 mg/dl (9-20); Calcium 9.5 mg/dl (8.4-10.2); Carbon Dioxide 30 mmol/L (22-30); Chloride 103 mmol/L (98-107); Glucose 87 mg/dl (70-99); Potassium 4.3 mmol/L (3.5-5.1); Sodium 138 mmol/L (135-145); eGFR > 60.00
== END ==
LOC: OLABPV 10:08
PROVIDERS: ATTENDING PHYSICIAN Internal Medicine Geriatric Medicine
DX: K92.2 Gastrointestinal hemorrhage, unspecified (principal)
CPT/HCPCS: 36415; 80048; 85025

== ENCOUNTER → 2024-10-31 10:41 | Outpatient (REF) | payer MEDICARE, SELFPAY ==
[2024-10-31 11:20] LABS: Blood Urea Nitrogen 18 mg/dl (9-20); Calcium 10.1 mg/dl (8.4-10.2); Carbon Dioxide 28 mmol/L (22-30); Chloride 108 mmol/L (98-107); Glucose 106 mg/dl (70-99); Potassium 4.5 mmol/L (3.5-5.1); Sodium 145 mmol/L (135-145); eGFR > 60.00
[2024-10-31 11:31] LABS: % Basophils 0.9 % (0-2); % Eosinophils 3.2 % (0-6); % Immature Granulocytes 0.3 % (0-0.5); % Lymphocytes 33.4 % (20.5-51.1); % Monocytes 10.7 % (1.7-9.3); % Neutrophils 51.5 % (42.2-75.2); Absolute Basophils 0.1 10^3/uL (0-0.2); Absolute Eosinophils 0.3 10^3/uL (0-0.7); Absolute Lymphocytes 2.6 10^3/uL (1.2-3.4); Absolute Monocytes 0.8 10^3/uL (0.1-0.6); Hematocrit 40.8 % (39.0-52.0); Mean Corp Hgb Conc. 31.9 g/dL (33.0-37.0); Mean Corpuscular Hgb 28.3 pg (27.0-31.0); Mean Corpuscular Volume 88.7 fL (80.0-94.0); Mean Platelet Volume 8.9 fL (7.4-10.4); Nucleated Red Blood Cells % 0 % (-); Platelet Count 277 10^3/uL (130-400); Red Cell Dist. Width 13.8 % (11.5-14.5); White Blood Cell Count 7.8 10^3/uL (4.8-10.8)
== END ==
LOC: OLABPV 10:41
PROVIDERS: ATTENDING PHYSICIAN Internal Medicine Geriatric Medicine
DX: J84.10 Pulmonary fibrosis, unspecified (principal); E78.2 Mixed hyperlipidemia; R53.83 Other fatigue; G47.00 Insomnia, unspecified; G25.0 Essential tremor; G60.9 Hereditary and idiopathic neuropathy, unspecified; N40.1 Benign prostatic hyperplasia with lower urinary tract symptoms; K57.91 Diverticulosis of intestine, part unspecified, without perforation or abscess with bleeding; Z13.89 Encounter for screening for other disorder; R97.20 Elevated prostate specific antigen [PSA]; R53.1 Weakness; R26.89 Other abnormalities of gait and mobility; H81.10 Benign paroxysmal vertigo, unspecified ear
CPT/HCPCS: 36415; 80048; 85025

== ENCOUNTER → 2024-12-27 10:47 | Outpatient (REF) | payer MEDICARE, SELFPAY ==
[2024-12-27 11:46] LABS: ALT (SGPT) 19 U/L (0-50); AST (SGOT) 23 U/L (17-59); Albumin 3.8 g/dl (3.5-5.0); Alkaline Phosphatase 73 U/L (38-126); Direct Bilirubin 0.1 mg/dl (0.0-0.4); Total Bilirubin 0.4 mg/dl (0.2-1.3); Total Protein 6.1 g/dl (6.3-8.2)
[2024-12-27 12:16] LABS: TSH Reflex To Free T4 0.91 uIU/ml (0.47-4.68)
[2024-12-29 00:24] LABS: Hepatitis B Surface Antigen Negative (Negative)
[2024-12-29 00:42] LABS: Hepatitis B Core Ab, Total Reactive (Negative); Hepatitis B Surface Antibody Positive; Hepatitis C Antibody Negative (Negative)
== END ==
LOC: OLABPV 10:47
PROVIDERS: ATTENDING PHYSICIAN Internal Medicine Gastroenterology
DX: K59.09 Other constipation (principal); K76.0 Fatty (change of) liver, not elsewhere classified
CPT/HCPCS: 36415; 80076; 84443; 86704; 86706; 86803; 87340; 87522

== ENCOUNTER → 2025-01-09 11:09 | Outpatient (REF) | payer MEDICARE, SELFPAY | LOC: OLABPV 11:09 | PROVIDERS: ATTENDING PHYSICIAN Internal Medicine Gastroenterology | DX: R89.9 Unspecified abnormal finding in specimens from other organs, systems and tissues (principal) | CPT/HCPCS: 36415; 87517 ==

== ENCOUNTER → 2025-03-28 11:29 | Outpatient (REF) | payer MEDICARE, SELFPAY ==
[2025-03-28 12:40] LABS: Hematocrit 42.6 % (39.0-52.0); Hemoglobin 13.7 g/dL (13.0-18.0); Mean Corp Hgb Conc. 32.2 g/dL (33.0-37.0); Mean Corpuscular Volume 87.7 fL (80.0-94.0); Nucleated Red Blood Cells % 0 % (-); Platelet Count 256 10^3/uL (130-400); Red Cell Dist. Width 15.6 % (11.5-14.5)
[2025-03-28 13:29] LABS: ALT (SGPT) 28 U/L (0-50); AST (SGOT) 31 U/L (17-59); Albumin 4.5 g/dl (3.5-5.0); Alkaline Phosphatase 79 U/L (38-126); Blood Urea Nitrogen 20 mg/dl (9-20); Calcium 9.4 mg/dl (8.4-10.2); Carbon Dioxide 28 mmol/L (22-30); Chloride 102 mmol/L (98-107); Glucose 89 mg/dl (70-99); HDL Cholesterol 96 mg/dl; LDL Cholesterol, Calculated 105 mg/dl; Potassium 4.4 mmol/L (3.5-5.1); Sodium 136 mmol/L (135-145); Total Protein 7.1 g/dl (6.3-8.2); Very Low Density Lipoprotein 15 mg/dl (0-30); eGFR > 60.00
[2025-03-28 14:10] LABS: Vitamin D, 25-OH*** 53.7 ng/mL (30-80)
[2025-03-28 17:38] LABS: Urine Character Clear (Clear)
[2025-03-28 18:30] LABS: Urine Red Blood Cell 0-2 /HPF (0-2); Urine Squamous Cell 0-2 /LPF (Few)
== END ==
LOC: OLABPV 11:29
PROVIDERS: ATTENDING PHYSICIAN Internal Medicine Geriatric Medicine
DX: G25.0 Essential tremor (principal); J84.10 Pulmonary fibrosis, unspecified; J44.9 Chronic obstructive pulmonary disease, unspecified; E78.2 Mixed hyperlipidemia; R53.83 Other fatigue; G47.00 Insomnia, unspecified; G60.9 Hereditary and idiopathic neuropathy, unspecified; N40.1 Benign prostatic hyperplasia with lower urinary tract symptoms; K57.91 Diverticulosis of intestine, part unspecified, without perforation or abscess with bleeding; R53.1 Weakness; Z23 Encounter for immunization; Z13.89 Encounter for screening for other disorder; R26.89 Other abnormalities of gait and mobility; H81.10 Benign paroxysmal vertigo, unspecified ear; Z79.899 Other long term (current) drug therapy
CPT/HCPCS: 36415; 80053; 80061; 81003; 81015; 82306; 85025